=== PATIENT | male | born 1980 | race Caucasian/White ===

== ENCOUNTER 2019-07-31 00:55 | Day surgery (SDC) | payer OTHER, SELFPAY ==
[2019-07-26 14:40] VITALS: BMI 24.4
[2019-07-31 08:17] VITALS: BP 129/78; PULSE 108; RESP 16; TEMP 36.8; O2SAT 98; BMI 23.6
--- NOTE | 2019-07-31 08:19 | P.PNAN_ITS ---
Anes - Initial Pre Proc Eval Procedure: Operation Date: 07/31/19 09:30 Proposed Procedures p Colonoscopy - Barrera Otero MD Date/Time: 07/31/19 08:19 Surgeon: Barrera Otero MD Pre Op Diagnosis: Diarrhea Patient Data Age: 38 Gender: M Height: 5 ft 11 in Weight: 79.4 kg Allergies Allergy/AdvReac Type Severity Reaction Status Date / Time No Known Allergies Allergy Verified 07/26/19 14:37 Home Medications Medication Instructions Recorded Confirmed Type No Home Medications 07/31/19 07/31/19 History Patient hx anesthesia problems: none Family hx anesthesia problems: none [facility] Social History Social History Smoking status: Former smoker Smoking end date: 06/13/08 Alcohol intake: current Substance use: never Substance use type: does not use Gender identity (if verbalized by the patient): Male Anes - Eval Final PreProcedure Day of Procedure 07/31/19 08:19 Patient weight: normal Heart: regular rate and rhythm Lungs: clear to auscultation Airway: Mallampati scale class II Neurological: alert and oriented Last oral intake: >/= 8 hours ASA classification: II Emergent: no Anesthetic plan: proceed Anesthesia type and monitoring: general GIVS and standard monitoring Informed Consent: The patient's anesthetic plan and its attendant risks and benefits were discussed with the patient/family/POA. Questions were solicited and answers provided to the satisfaction of the patient/family/POA.
[2019-07-31] MEDS: LACTATED RINGERS 1,000 ML 150 ML IV CONT (08:29)
--- NOTE | 2019-07-31 08:55 | PM.HPGS ---
History of Present Illness History of Present Illness Consent: Risks, benefits, and alternatives have been discussed and questions answered. Patient agrees to proceed with procedure. Chief complaint: Diarrhea Narrative: Antony Brenner is a 38 year old male with lower abdominal discomfort for last few weeks, stool samples and blood work negative, never had a colonoscopy Review of Systems Constitutional: Constitutional: Denies headache(s) and Denies weakness Eyes: Eyes: Denies blurry vision ENT: Reports Normal hearing present, Denies headache(s) and Denies neck pain Cardiovascular: Cardiovascular: Denies chest pain and Denies dyspnea Respiratory: Respiratory: Denies dyspnea Gastrointestinal: Gastrointestinal: Reports no additional gastrointestinal complaints Genitourinary: Genitourinary: Denies dysuria Musculoskeletal: Musculoskeletal: Denies neck pain Integumentary/Breasts: Skin/Breast: Denies dry skin Neurologic: Reports Normal hearing present, Denies headache(s) and Denies weakness Psychiatric: Psychiatric: Denies anxiety Endocrine: Endocrine: Denies change in body appearance Hematologic/Lymphatic: Hematologic/Lymphatic: Denies easy bleeding Allergic/Immunologic: Allergic/Immunologic: Denies urticaria [facility] Social History Social History Smoking status: Former smoker Smoking end date: 06/13/08 Alcohol intake: current Substance use: never Substance use type: does not use Gender identity (if verbalized by the patient): Male Meds Home Medications and Allergies Home Medications Medication Instructions Recorded Confirmed Type No Home Medications 07/31/19 07/31/19 History Allergies Allergy/AdvReac Type Severity Reaction Status Date / Time No Known Allergies Allergy Verified 07/31/19 08:34 Vital Signs Vital Signs - 24 hr 07/31/19 08:17 Temperature 98.3 F Pulse Rate 108 H Respiratory Rate 16 Blood Pressure 129/78 Pulse Oximetry 98 Exam Const: General: comfortable and no acute distress HENMT: General nose exam: Normal nares present Eyes: General: appearance normal, both eyes and all related structures Neck: Neck: no JVD Resp: Auscultation: clear to auscultation bilaterally Cardio: Rate: regular rate Rhythm: regular rhythm GI: Inspection: non-distended GI Palp: Yes Soft to palpation Skin: General skin exam: normal color Neuro: General: gait normal Speech: normal speech Extrem: General: normal to inspection Psych: Mental Status: mental status grossly normal Assessment and Plan Assessment and plan (1) Diarrhea: Qualifiers: Diarrhea type: unspecified type Qualified Code(s): R19.7 - Diarrhea, unspecified Code(s): R19.7 - Diarrhea, unspecified Status: Acute Assessment and Plan: now more constipation, treated with abx but still symptomatic. Will do a colonoscopy, consider random bx (2) Lower abdominal pain: Code(s): R10.30 - Lower abdominal pain, unspecified Status: Acute (3) Migraine: Qualifiers: Migraine type: unspecified Status migrainosus presence: without status migrainosus Intractability: not intractable Qualified Code(s): G43.909 - Migraine, unspecified, not intractable, without status migrainosus Code(s): G43.909 - Migraine, unspecified, not intractable, without status migrainosus Status: Acute
[2019-07-31 09:16] VITALS: BP 93/66; PULSE 85; RESP 16; O2SAT 97
[2019-07-31 09:26] VITALS: BP 95/68; PULSE 85; RESP 16; O2SAT 98
[2019-07-31 09:36] VITALS: BP 105/70; PULSE 80; RESP 16; O2SAT 99
== END 2019-07-31 09:49 | disposition home or self-care (01) ==
PROVIDERS: PCP Family Medicine; Visit Provider Internal Medicine Gastroenterology
PROC: 0DJD8ZZ Inspection of Lower Intestinal Tract, Via Natural or Artificial Opening Endoscopic (ICD-10-PCS; CPT 45378; principal; 2019-07-31 09:30)
DX: K51.90 Ulcerative colitis, unspecified, without complications (principal); Z87.891 Personal history of nicotine dependence
CPT/HCPCS: 45380; 88305; J2704; J7120

== ENCOUNTER 2019-08-09 08:39 | Emergency (ER) | payer OTHER, SELFPAY ==
--- NOTE | 2019-08-09 08:54 | ED.HA ---
HPI - Headache General Chief Complaint: Headache Stated Complaint: headache x 3days Time Seen by Provider: 08/09/19 08:54 Source: patient Mode of arrival: ambulatory Limitations: no limitations History of Present Illness HPI Narrative: A 38 y/o male presents to the ED with c/o headache. He reports that the headache started 2 days ago and has been constant since. The headache is usually relieved by Excedrine migraine, but it did not help the last 2 days. He rates the headache a 7/10 in severity. Pt states that he has a PMHx of migraines, but states that they have been more frequent for the past 3 weeks. He notes that he saw his PCP on 08/06/19 and she prescribed him Rizatriptan for the frequent migrqaines. Pt took the Rizatriptan yesterday, but adds that it made his face red and painful, so he is not going to take it again. At his PCP appointment, he reports that his enzyme count was high and his PCP recommended an ultrasound of his liver. Pt reports fever, but denies N/V/D. He notes that he had a colonoscopy on 07/31/19 and was diagnosed with colitis. MD elicited complaint: headache Pertinent past history: migraines Onset (ago): day(s) (2) Pain scale (0-10): 7 Quality & Timing: constant Relieving factors: nothing Associated symptoms: fever Treatments prior to arrival: migraine medication (Rizatriptan, Excedrine) Related Data Allergies Allergy/AdvReac Type Severity Reaction Status Date / Time No Known Allergies Allergy Verified 07/31/19 08:34 Review of Systems Review of Systems: All systems reviewed & are unremarkable except as noted in HPI and below Constitutional: Constitutional: Reports fever(s) Gastrointestinal: Gastrointestinal: Denies diarrhea, Denies nausea and Denies vomiting Neurologic: Reports headache(s) [facility] Past Medical History Medical History (Updated 08/09/19 @ 11:25 by Jamie Cantu MD) Colitis Diarrhea Lower abdominal pain Migraine Surgical History Surgical History (Updated 08/09/19 @ 09:03 by Gabbi De La Rosa) History of colonoscopy Social History Social History Smoking status: Former smoker Smoking end date: 06/13/08 Alcohol intake: current Substance use: never Substance use type: does not use Gender identity (if verbalized by the patient): Male Exam Const: General: healthy appearing and no acute distress Nutritional Appearance: well nourished HENMT: Mouth: Yes lip normal and Yes moist mucous membranes Eyes: Conjunctivae: conjunctivae normal Pupils: Equal, round and reactive pupils present Resp: Effort & Inspection: normal respiratory effort Auscultation: clear to auscultation bilaterally Cardio: Rate: regular rate Rhythm: regular rhythm Heart sounds: no murmurs GI: GI Palp: Yes Soft to palpation and No Tenderness to palpation present (GI) Auscultation: normal bowel sounds Back/Spine/Pelvis: Back: other (Full ROM) Skin: General skin exam: normal color, dry skin and other (Warm) Neuro: General: patient oriented x3 (Alert) Speech: normal speech Extrem: General: full ROM Psych: Mental Status: mental status grossly normal Affect: normal affect Course Vital Signs Vital signs: Vital Signs Temperature 36.4 C L 08/09/19 08:56 Pulse Rate 108 H 08/09/19 08:56 Respiratory Rate 12 08/09/19 08:56 Blood Pressure 145/83 H 08/09/19 08:56 Pulse Oximetry 99 08/09/19 08:56 Temperature 36.4 C L 08/09/19 08:56 Pulse Rate 108 H 08/09/19 08:56 Respiratory Rate 12 08/09/19 08:56 Blood Pressure 145/83 H 08/09/19 08:56 Pulse Oximetry 99 08/09/19 08:56 MDM - Headache MDM Narrative Medical decision making narrative: Pain down to 1/10 after treatment. consistent with previous migraines. No indication for imaging at this time. Differential Diagnosis Differential diagnosis: Likely migraine Medical Records Attestation: I reviewed the patient's medical records. Discharge Plan Discharge Cli
[2019-08-09 08:56] VITALS: BP 145/83; PULSE 108; RESP 12; TEMP 36.4; O2SAT 99
[2019-08-09] MEDS: METOCLOPRAMIDE HCL INJ 10 MG/2 ML VIAL IV PUSH (09:16)
[2019-08-09] MEDS: SODIUM CHLORIDE 0.9% IV 1,000 ML 999 ML IV CONT (09:16)
[2019-08-09] MEDS: KETOROLAC 30 MG/ML VIAL (*BKC) IV PUSH (09:59)
--- NOTE | 2019-08-14 07:52 | PC.NURSE ---
LATE ENTRY This note is being entered to document information to the patient's record. The following information was omitted on [08/09/2019], by [DONNIE Montalvo infused at [phone].].
== END 2019-08-09 11:41 | disposition home or self-care (01) ==
PROVIDERS: Emergency Provider Emergency Medicine; PCP Family Medicine
DX: G43.909 Migraine, unspecified, not intractable, without status migrainosus (principal); Z87.891 Personal history of nicotine dependence
CPT/HCPCS: 96361; 96374; 96375; 99284; J0131; J1100; J1200; J1885; J2765; J7030

== ENCOUNTER 2020-01-17 08:41 | Outpatient (CLI) | payer OTHER, SELFPAY ==
--- NOTE | ~2020-01-17 | MR_ITS ---
EXAMINATION: MR MRCP wo/w con/w 3D wo ind DATE: 01/17/2020 10:15 INDICATION: Lower abdominal pain, TECHNIQUE: Magnetic resonance imaging (MRI) of the abdomen was performed without and with intravenous contrast. Sequences included coronal T2-weighted SS-FSE ARC, coronal T2-weighted FS SS-FSE, coronal T2-weighted 2D FS FIESTA, Water:Coronal LAVA-Flex, sagittal T2-weighted SS-FSE ARC, axial SSFSE ARC, axial 3D DualEcho, axial DWI B=600, axial T1-weighted LAVA, FAT:Coronal LAVA-Flex, and coronal in and opposed phase LAVA-Flex. Thick-slab T2-weighted FRFSE-XL images were obtained for magnetic resonance cholangiopancreatography (MRCP). Maximum intensity projection 3-D reconstructions of the volumetric data were created by the technologist. Postcontrast sequences included a time course of axial T1-weig hted LAVA, FAT:Coronal LAVA-Flex, coronal in and opposed phase LAVA-Flex, and Water:Coronal LAVA-Flex . COMPARISON: None. CONTRAST: Multihance, 15 cc FINDINGS: ABDOMEN MRI: The visualized lung bases are clear. The heart size is normal. The liver, spleen, pancre as, gallbladder, and adrenal glands are normal. Cysts of the kidneys measure up to 6 mm on the right. There are no pathologically enlarged abdominal lymph nodes. No dilated loops of bowel are seen. Ther e is a moderate volume of colonic stool. ABDOMEN MRCP: There is no intrahepatic or extrahepatic biliary dilatation. No stone or stricture of t he common bile duct is identified. The pancreatic duct is normal in course and caliber. IMPRESSION: 1. No MRI correlate for the patient's symptoms. Reviewed, dictated and finalized at location A.
[2020-01-17 09:29] LABS: Estimated Glomerular Filt Rate > 60
== END 2020-01-17 08:42 | disposition home or self-care (01) ==
LOC: ANHIMG 08:43
PROVIDERS: PCP Family Medicine; Visit Provider Internal Medicine Gastroenterology
DX: R10.30 Lower abdominal pain, unspecified (principal); R74.8 Abnormal levels of other serum enzymes
CPT/HCPCS: 36415; 74183; 76376; A9577

== ENCOUNTER → 2020-10-18 01:08 | Outpatient (CLI) | payer OTHER, SELFPAY ==
[2020-10-19 14:53] LABS: SARS-CoV-2 RNA PCR Negative
== END ==
PROVIDERS: PCP Family Medicine; Visit Provider Internal Medicine Gastroenterology
DX: Z01.812 Encounter for preprocedural laboratory examination (principal); Z20.822 Contact with and (suspected) exposure to COVID-19
CPT/HCPCS: C9803; U0003; U0005

== ENCOUNTER 2020-10-21 02:18 | Day surgery (SDC) | payer OTHER, SELFPAY ==
[2020-10-10 13:59] VITALS: BMI 24.4
[2020-10-21 09:31] VITALS: BMI 23.1
[2020-10-21 09:32] VITALS: BP 116/80; PULSE 77; RESP 14; TEMP 36.3; O2SAT 100; BMI 23.1
[2020-10-21] MEDS: LACTATED RINGERS 1,000 ML 150 ML IV CONT (09:38)
--- NOTE | 2020-10-21 09:38 | WPDANESEPPF ---
Anes - Initial Pre Proc Eval Procedure: Operation Date: 10/21/20 10:45 Proposed Procedures p Colonoscopy - Barrera Otero MD Date/Time: 10/21/20 09:38 Surgeon: Barrera Otero MD Pre Op Diagnosis: ulcerative proctitis Patient Data Age: 39 Gender: M Height: 1.8 m Weight: 75 kg Last Vital Signs Temp 36.3 C L 10/21/20 09:32 Pulse 77 10/21/20 09:32 Resp 14 10/21/20 09:32 BP 116/80 10/21/20 09:32 Pulse Ox 100 10/21/20 09:32 Allergies Allergy/AdvReac Type Severity Reaction Status Date / Time No Known Allergies Allergy Verified 10/21/20 09:30 Home Medications Medication Instructions Recorded Confirmed Type mesalamine 1.2 gram tablet,delayed See Rx Instructions .ROUTE 10/15/20 10/21/20 Rx release .COMPLEX #90 tablet Patient hx anesthesia problems: none Family hx anesthesia problems: none PMFSH Past Medical History Medical History (Updated 11/01/19 @ 11:12 by Barrera Otero MD) Colitis Diarrhea Elevated liver enzymes Lower abdominal pain Migraine Ulcerative (chronic) proctitis Surgical History Surgical History (Updated 08/09/19 @ 09:03 by Gabbi De La Rosa) History of colonoscopy Social History Social History Smoking status: Former smoker Tobacco type: cigarettes Smoking end date: 06/13/08 Alcohol intake: current Drinks per week: 3 Substance use: never Substance use type: does not use Living arrangements: with family Gender identity (if verbalized by the patient): Male Sexual Orientation (if Verbalized by the Patient): Straight or Heterosexual Spiritual care concerns: No Anes - Eval Final PreProcedure Day of Procedure 10/21/20 09:38 Patient weight: normal Heart: regular rate and rhythm Lungs: clear to auscultation and normal air movement Airway: Mallampati scale class II Neurological: alert and oriented Last oral intake: >/= 8 hours ASA classification: III Emergent: no Anesthetic plan: proceed Anesthesia type and monitoring: general GIVS and standard monitoring Informed Consent: The patient's anesthetic plan and its attendant risks and benefits were discussed with the patient/family/POA. Questions were solicited and answers provided to the satisfaction of the patient/family/POA.
--- NOTE | 2020-10-21 09:55 | PM.HPGS ---
History of Present Illness History of Present Illness Consent: Risks, benefits, and alternatives have been discussed and questions answered. Patient agrees to proceed with procedure. Chief complaint: ulcerative proctitis Narrative: Antony Brenner is a 39 year old male with ulcerative proctitis on oral mesalamine doing quite well. Review of Systems Constitutional: Constitutional: Denies headache(s) and Denies weakness Eyes: Eyes: Denies blurry vision ENT: Reports Normal hearing present, Denies headache(s) and Denies neck pain Cardiovascular: Cardiovascular: Denies chest pain and Denies dyspnea Respiratory: Respiratory: Denies dyspnea Gastrointestinal: Gastrointestinal: Reports no additional gastrointestinal complaints Genitourinary: Genitourinary: Denies dysuria Musculoskeletal: Musculoskeletal: Denies neck pain Integumentary/Breasts: Skin/Breast: Denies dry skin Neurologic: Reports Normal hearing present, Denies headache(s) and Denies weakness Psychiatric: Psychiatric: Denies anxiety Endocrine: Endocrine: Denies change in body appearance Hematologic/Lymphatic: Hematologic/Lymphatic: Denies easy bleeding Allergic/Immunologic: Allergic/Immunologic: Denies urticaria PMFSH Past Medical History Medical History (Updated 11/01/19 @ 11:12 by Barrera Otero MD) Colitis Diarrhea Elevated liver enzymes Lower abdominal pain Migraine Ulcerative (chronic) proctitis Surgical History Surgical History (Updated 08/09/19 @ 09:03 by Gabbi De La Rosa) History of colonoscopy Social History Social History Smoking status: Former smoker Tobacco type: cigarettes Smoking end date: 06/13/08 Alcohol intake: current Drinks per week: 3 Substance use: never Substance use type: does not use Living arrangements: with family Gender identity (if verbalized by the patient): Male Sexual Orientation (if Verbalized by the Patient): Straight or Heterosexual Spiritual care concerns: No Meds Home Medications and Allergies Home Medications Medication Instructions Recorded Confirmed Type mesalamine 1.2 gram tablet,delayed See Rx Instructions .ROUTE 10/15/20 10/21/20 Rx release .COMPLEX #90 tablet Allergies Allergy/AdvReac Type Severity Reaction Status Date / Time No Known Allergies Allergy Verified 10/21/20 09:30 Vital Signs Vital Signs - 24 hr 10/21/20 09:32 Temperature 97.4 F L Pulse Rate 77 Respiratory Rate 14 Blood Pressure 116/80 Pulse Oximetry 100 Exam Const: General: comfortable and no acute distress HENMT: General nose exam: Normal nares present Eyes: General: appearance normal, both eyes and all related structures Neck: Neck: no JVD Resp: Auscultation: clear to auscultation bilaterally Cardio: Rate: regular rate Rhythm: regular rhythm GI: Inspection: non-distended GI Palp: Yes Soft to palpation Skin: General skin exam: normal color Neuro: General: gait normal Speech: normal speech Extrem: General: normal to inspection Psych: Mental Status: mental status grossly normal Assessment and Plan Assessment and plan (1) Ulcerative (chronic) proctitis: Code(s): K51.20 - Ulcerative (chronic) proctitis without complications Status: Acute Assessment and Plan: colonoscopy to assess for healing
[2020-10-21 10:13] VITALS: BP 107/71; PULSE 72; RESP 12; O2SAT 98
[2020-10-21 10:23] VITALS: BP 105/75; PULSE 65; RESP 11; O2SAT 100
[2020-10-21 10:33] VITALS: BP 113/82; PULSE 65; RESP 13; O2SAT 100
== END 2020-10-21 10:44 | disposition home or self-care (01) ==
PROVIDERS: PCP Family Medicine; Visit Provider Internal Medicine Gastroenterology
PROC: 0DJD8ZZ Inspection of Lower Intestinal Tract, Via Natural or Artificial Opening Endoscopic (ICD-10-PCS; CPT 45378; principal; 2020-10-21 10:45)
DX: K51.20 Ulcerative (chronic) proctitis without complications (principal); K52.9 Noninfective gastroenteritis and colitis, unspecified; R10.30 Lower abdominal pain, unspecified; Z87.891 Personal history of nicotine dependence
CPT/HCPCS: 45380; 88305; C9803; J7120; U0003; U0005

== ENCOUNTER 2021-04-23 13:46 | Outpatient (CLI) | payer OTHER, SELFPAY ==
[2021-04-23 14:36] LABS: Hematocrit 44.8 % (42.0-52.0); Mean Corpuscular HGB Conc 33.5 g/dl (32-36); Mean Corpuscular Hemoglobin 28.2 pg (26-34); Mean Corpuscular Volume 84.4 fl (80-100); Mean Platelet Volume 11.3 fl (7.4-10.4); Platelet Count Result 229 k/mm3 (150-375); Red Blood Count 5.31 M/mm3 (4.6-6.20); Red Cell Distribution Width 12.2 % (11.5-14.5); White Blood Count 7.1 K/mm3 (4.5-10.0)
[2021-04-23 14:47] LABS: Erythrocyte Sedimentation Rate 18 mm/hr (0-20)
[2021-04-23 14:48] LABS: Alanine Aminotransferase 30 U/L (4-50); Alkaline Phosphatase 67 U/L (38-126); Anion Gap 7 mmol/L (8-16); Aspartate Amino Transferase 31 U/L (17-59); Bilirubin,Total 0.4 mg/dL (0.2-1.3); Blood Urea Nitrogen 18 mg/dL (9-20); CRP < 0.5 mg/dL (<1.0); Calcium 9.9 mg/dL (8.4-10.2); Carbon Dioxide 31 mmol/L (22-30); Chloride 100 mmol/L (98-107); Estimated Glomerular Filt Rate > 60; Glucose 92 mg/dL (65-110); Potassium 4.7 mmol/L (3.4-5.0); Sodium 138 mmol/L (137-145)
== END 2021-04-23 13:47 | disposition home or self-care (01) ==
LOC: ANHLAB 13:48
PROVIDERS: PCP Family Medicine; Visit Provider Internal Medicine Gastroenterology
DX: K51.20 Ulcerative (chronic) proctitis without complications (principal)
CPT/HCPCS: 36415; 80053; 85027; 85652; 86140

== ENCOUNTER 2022-08-26 14:47 | Outpatient (CLI) | payer OTHER, SELFPAY ==
[2022-08-26 15:08] LABS: Hematocrit 44.7 % (42.0-52.0); Mean Corpuscular HGB Conc 33.6 g/dl (32-36); Mean Corpuscular Hemoglobin 27.7 pg (26-34); Mean Corpuscular Volume 82.6 fl (80-100); Mean Platelet Volume 10.4 fl (7.4-10.4); Platelet Count Result 210 k/mm3 (150-375); Red Blood Count 5.41 M/mm3 (4.6-6.20); Red Cell Distribution Width 12.5 % (11.5-14.5); White Blood Count 5.8 K/mm3 (4.5-10.0)
[2022-08-26 16:17] LABS: Erythrocyte Sedimentation Rate 1 mm/hr (0-20)
[2022-08-26 17:29] LABS: Alanine Aminotransferase 35 U/L (6-50); Albumin Level 4.7 g/dL (3.5-5.1); Alkaline Phosphatase 76 U/L (38-126); Anion Gap 7 mmol/L (8-16); Aspartate Amino Transferase 29 U/L (17-59); Bilirubin,Total 0.6 mg/dL (0.2-1.3); Blood Urea Nitrogen 19 mg/dL (9-20); CRP < 0.5 mg/dL (<1.0); Calcium 9.3 mg/dL (8.4-10.2); Carbon Dioxide 30 mmol/L (22-30); Chloride 103 mmol/L (98-107); Estimated Glomerular Filt Rate > 60; Glucose 104 mg/dL (65-110); Potassium 4.2 mmol/L (3.4-5.0); Sodium 140 mmol/L (137-145)
== END 2022-08-26 14:48 | disposition home or self-care (01) ==
LOC: ANHLAB 14:48
PROVIDERS: PCP Family Medicine; Visit Provider Internal Medicine Gastroenterology
DX: K51.20 Ulcerative (chronic) proctitis without complications (principal)
CPT/HCPCS: 36415; 80053; 85027; 85652; 86140

== ENCOUNTER 2023-07-12 09:56 | Outpatient (CLI) | payer OTHER, SELFPAY ==
[2023-07-12 10:09] LABS: Hematocrit 47.7 % (42.0-52.0); Hemoglobin 15.2 g/dL (14.0-18.0); Mean Corpuscular HGB Conc 31.9 g/dl (32-36); Mean Corpuscular Hemoglobin 26.6 pg (26-34); Mean Corpuscular Volume 83.5 fl (80-100); Mean Platelet Volume 10.4 fl (7.4-10.4); Platelet Count Result 216 k/mm3 (150-375); Red Blood Count 5.71 M/mm3 (4.6-6.20); Red Cell Distribution Width 12.4 % (11.5-14.5); White Blood Count 5.1 K/mm3 (4.5-10.0)
[2023-07-12 10:24] LABS: Alanine Aminotransferase 39 U/L (6-50); Albumin Level 4.8 g/dL (3.5-5.1); Alkaline Phosphatase 72 U/L (38-126); Anion Gap 9 mmol/L (8-16); Aspartate Amino Transferase 33 U/L (17-59); Bilirubin,Total 0.6 mg/dL (0.2-1.3); Blood Urea Nitrogen 16 mg/dL (9-20); CRP < 0.5 mg/dL (<1.0); Calcium 9.9 mg/dL (8.4-10.2); Carbon Dioxide 29 mmol/L (22-30); Chloride 102 mmol/L (98-107); Estimated Glomerular Filt Rate > 60; Glucose 100 mg/dL (65-110); Potassium 4.4 mmol/L (3.4-5.0); Sodium 140 mmol/L (137-145)
[2023-07-12 11:24] LABS: Erythrocyte Sedimentation Rate 1 mm/hr (0-20)
== END 2023-07-12 09:57 | disposition home or self-care (01) ==
LOC: ANHLAB 09:58
PROVIDERS: Visit Provider Nurse Practitioner
DX: K51.20 Ulcerative (chronic) proctitis without complications (principal); R15.9 Full incontinence of feces; R19.8 Other specified symptoms and signs involving the digestive system and abdomen
CPT/HCPCS: 36415; 80053; 85027; 85652; 86140

== ENCOUNTER 2023-09-06 01:00 | Day surgery (SDC) | payer OTHER, SELFPAY ==
[2023-08-26 10:10] VITALS: BMI 25.4
--- NOTE | 2023-09-02 09:04 | SUR.PREOP ---
Patient called regarding upcoming procedure. Reviewed preop instructions, appointment times, and procedure prep.
[2023-09-06 06:49] VITALS: BP 128/75; PULSE 89; RESP 16; TEMP 36.2; O2SAT 100
[2023-09-06] MEDS: LACTATED RINGERS 1,000 ML 150 ML IV CONT (06:57)
--- NOTE | 2023-09-06 07:42 | P.PNAN_ITS ---
Anes - Initial Pre Proc Eval Procedure: Operation Date: 09/06/23 08:00 Proposed Procedures p Flexible Sigmoidoscopy - Barrera Otero MD Date/Time: 09/06/23 07:42 Surgeon: Barrera Otero MD Pre Op Diagnosis: Ulcerative (chronic) proctitis without complicati Patient Data Age: 42 Gender: M Height: 1.8 m Weight: 76.4 kg Last Vital Signs Temp 97.2 F L 09/06/23 06:49 Pulse 89 09/06/23 06:49 Resp 16 09/06/23 06:49 BP 128/75 09/06/23 06:49 Pulse Ox 100 09/06/23 06:49 O2 Del Method Room Air 09/06/23 06:49 Allergies Allergy/AdvReac Type Severity Reaction Status Date / Time No Known Allergies Allergy Verified 09/06/23 06:47 Home Medications Medication Instructions Recorded Confirmed Type mesalamine 1.2 gram tablet,delayed See Rx Instructions .Route 11/05/22 09/06/23 Rx release .COMPLEX #270 tabs mesalamine 1,000 mg rectal 1 g RECTAL QHS #30 ea 07/12/23 09/06/23 Rx suppository (Canasa) Patient hx anesthesia problems: none Family hx anesthesia problems: none Results Review: All pre-operative results and documents have been reviewed as part of the pre- operative evaluation. [facility] Past Medical History Medical History (Updated 07/12/23 @ 09:38 by Julia Cuevas APRN) Colitis Diarrhea Elevated liver enzymes Lower abdominal pain Migraine Rectal leakage Tenesmus (rectal) Ulcerative (chronic) proctitis Surgical History Surgical History History of colonoscopy Social History Social History Smoking status: Former smoker Tobacco type: cigarettes Smoking end date: 06/13/08 Alcohol intake: current Drinks per week: 3 Substance use: never Substance use type: does not use Living arrangements: alone Gender identity (if verbalized by the patient): Male Sexual Orientation (if Verbalized by the Patient): Straight or Heterosexual Spiritual care concerns: No Anes - Eval Final PreProcedure Day of Procedure 09/06/23 07:42 Patient weight: normal Heart: regular rate and rhythm Lungs: clear to auscultation Airway: Mallampati scale class II Neurological: alert and oriented Last oral intake: >/= 8 hours ASA classification: III Emergent: no Anesthetic plan: proceed Anesthesia type and monitoring: general GIVS and standard monitoring Results Review: All pre-operative results and documents have been reviewed as part of the pre- operative evaluation. Informed Consent: The patient's anesthetic plan and its attendant risks and benefits were discussed with the patient/family/POA. Questions were solicited and answers provided to the satisfaction of the patient/family/POA.
--- NOTE | 2023-09-06 08:04 | PM.HPGS ---
History of Present Illness History of Present Illness Consent: Risks, benefits, and alternatives have been discussed and questions answered. Patient agrees to proceed with procedure. 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 He was previously on suppositories but then placed on oral mesalamine 3 tabs daily and was doing well.?Last colonoscopy 2020 showed only mild proctitis, recently had flare up and started using again suppository and symptom resolved. Review of Systems Review of Systems: All systems reviewed & are unremarkable except as noted in HPI and below PMFSH Past Medical History Medical History (Updated 07/12/23 @ 09:38 by Julia Cuevas APRN) Colitis Diarrhea Elevated liver enzymes Lower abdominal pain Migraine Rectal leakage Tenesmus (rectal) Ulcerative (chronic) proctitis Surgical History Surgical History History of colonoscopy Social History Social History Smoking status: Former smoker Tobacco type: cigarettes Smoking end date: 06/13/08 Alcohol intake: current Drinks per week: 3 Substance use: never Substance use type: does not use Living arrangements: alone Gender identity (if verbalized by the patient): Male Sexual Orientation (if Verbalized by the Patient): Straight or Heterosexual Spiritual care concerns: No Meds Home Medications and Allergies Home Medications Medication Instructions Recorded Confirmed Type mesalamine 1.2 gram tablet,delayed See Rx Instructions .Route 11/05/22 09/06/23 Rx release .COMPLEX #270 tabs mesalamine 1,000 mg rectal 1 g RECTAL QHS #30 ea 07/12/23 09/06/23 Rx suppository (Canasa) Allergies Allergy/AdvReac Type Severity Reaction Status Date / Time No Known Allergies Allergy Verified 09/06/23 06:47 Vital Signs Vital Signs - 24 hr 09/06/23 06:49 Temperature 97.2 F L Pulse Rate 89 Respiratory Rate 16 Blood Pressure 128/75 Pulse Oximetry 100 Oxygen Delivery Room Air Exam Const: General: comfortable and no acute distress HENMT: Face/Nose/Sinus: Normal nares present Eyes: General: appearance normal, both eyes and all related structures Neck: Neck: no JVD Resp: Auscultation: clear to auscultation bilaterally Cardio: Rate: regular rate Rhythm: regular rhythm GI: Inspection: non-distended GI Palp: Yes Soft to palpation Skin: General skin exam: normal color Neuro: General: gait normal Speech: normal speech Extrem: General: normal to inspection Psych: Mental Status: mental status grossly normal Assessment and Plan Assessment and plan (1) Ulcerative (chronic) proctitis: Code(s): K51.20 - Ulcerative (chronic) proctitis without complications Status: Acute Assessment and Plan: sigmoidoscopy to assess doing well on mesalamine
[2023-09-06 08:12] VITALS: BP 101/68; PULSE 72; RESP 18; O2SAT 97
[2023-09-06 08:22] VITALS: BP 101/69; PULSE 69; RESP 21; O2SAT 98
[2023-09-06 08:32] VITALS: BP 120/82; PULSE 63; RESP 12; O2SAT 99
== END 2023-09-06 08:49 | disposition home or self-care (01) ==
PROVIDERS: Visit Provider Internal Medicine Gastroenterology
PROC: 0DJD8ZZ Inspection of Lower Intestinal Tract, Via Natural or Artificial Opening Endoscopic (ICD-10-PCS; CPT 45330; principal; 2023-09-06 08:00)
DX: K51.20 Ulcerative (chronic) proctitis without complications (principal); Z87.891 Personal history of nicotine dependence; K64.8 Other hemorrhoids
CPT/HCPCS: 45330; J2704; J7120

== ENCOUNTER 2024-02-08 14:37 | Outpatient (CLI) | payer OTHER, SELFPAY ==
[2024-02-08 14:54] LABS: Hematocrit 43.5 % (42.0-52.0); Hemoglobin 14.8 g/dL (14.0-18.0); Mean Corpuscular Hemoglobin 28.1 pg (26-34); Mean Corpuscular Volume 82.7 fl (80-100); Mean Platelet Volume 10.9 fl (7.4-10.4); Platelet Count Result 199 k/mm3 (150-375); Red Blood Count 5.26 M/mm3 (4.6-6.20); Red Cell Distribution Width 12.5 % (11.5-14.5); White Blood Count 6.1 K/mm3 (4.5-10.0)
[2024-02-08 15:17] LABS: Erythrocyte Sedimentation Rate 3 mm/hr (0-20)
[2024-02-08 17:01] LABS: Alanine Aminotransferase 38 U/L (6-50); Albumin Level 4.6 g/dL (3.5-5.1); Alkaline Phosphatase 76 U/L (38-126); Anion Gap 7 mmol/L (4-12); Aspartate Amino Transferase 34 U/L (17-59); Bilirubin,Total 0.5 mg/dL (0.2-1.3); Blood Urea Nitrogen 16 mg/dL (9-20); CRP < 0.5 mg/dL (<1.0); Calcium 9.6 mg/dL (8.4-10.2); Carbon Dioxide 32 mmol/L (22-30); Chloride 98 mmol/L (98-107); Estimated Glomerular Filt Rate > 60; Glucose 120 mg/dL (65-110); Potassium 4.1 mmol/L (3.4-5.0); Sodium 137 mmol/L (137-145)
[2024-02-08 17:05] LABS: Iron 82 ug/dL (49-181)
[2024-02-08 17:14] LABS: Percent Iron Saturation 25 % (20-50)
[2024-02-08 18:01] LABS: Folic Acid 13.8 ng/mL (2.76->20)
[2024-02-11 14:34] LABS: Vitamin D 1,25 (OH)2 Total 41 pg/mL (18-72); Vitamin D2 1,25 (OH)2 <8 pg/mL; Vitamin D3 1,25 (OH)2 41 pg/mL
== END 2024-02-08 14:38 | disposition home or self-care (01) ==
LOC: ANHLAB 14:39
PROVIDERS: PCP Nurse Practitioner; Visit Provider Nurse Practitioner
DX: K51.20 Ulcerative (chronic) proctitis without complications (principal)
CPT/HCPCS: 36415; 80053; 82607; 82652; 82728; 82746; 83540; 83550; 85027; 85652; 86140

== ENCOUNTER 2024-09-20 11:33 | Outpatient (CLI) | payer OTHER, SELFPAY ==
[2024-09-20 11:51] LABS: Hematocrit 46.8 % (42.0-52.0); Hemoglobin 15.3 g/dL (14.0-18.0); Mean Corpuscular HGB Conc 32.7 g/dl (32-36); Mean Corpuscular Hemoglobin 26.7 pg (26-34); Mean Corpuscular Volume 81.8 fl (80-100); Mean Platelet Volume 10.4 fl (7.4-10.4); Platelet Count Result 207 k/mm3 (150-375); Red Blood Count 5.72 M/mm3 (4.6-6.20); Red Cell Distribution Width 12.6 % (11.5-14.5); White Blood Count 6.1 K/mm3 (4.5-10.0)
--- OUTSIDE RECORDS SUMMARY | 2024-09-20 12:21 | XMS_ITS | Clinical Summary ---
Author Organization [facility] Address [facility] [place] [address] Care Team Providers Care Health Inspector Name Role Phone None, Provider MD Primary Care Provider Unavaila ble Allergies No known active allergies Medications mesalamine EC (LIALDA) 1.2 g Tab EC tablet 05/09/2022 Activ e predniSONE (DELTASONE) 20 MG tabletIndicatio ns:Poison aron dermatitis Take 3 tablets for 3 days, then 2 tabs for 3 days, then 1 tab for 3 days, then 1/2 tab for 4 days. 20 tablet 05/07/2024 Active Active Problems No known active problems Immunizations Name Administration Dates Next Due Influenza Adult (Generic) 03/17/2019,04/08/2016 Tdap (Generic) 01/08/2016 Family History Medical History Relation Comments Cancer Mother Relation Status Comments Father Alive Mother Alive Social History Tobacco Use Types Packs/Day Years Used Date Smoking Tobacco: Never Smokeless Tobacco: Never Tobacco Cessation:Counseling Given: No Alcohol Use Standard Drinks/Week Comments Yes 0 (1 standard drink = 0.6 oz pur e alcohol) occ PHQ-2 Answer Date Recorded Patient Health Questionnaire-2 Score 0 05/07/2024 Sex and Gender Information Value Date Recorded Sex Assigned at Not on file Legal Sex Male 8:37 PM CDT Gender Identity Not on file Sexual Orientation Not on file Last Filed Vital Signs Vital Sign Reading Time Taken Comments Blood Pressure 133/88 05/07/2024 4:19 PM STRUCTURAL DESIGNER Pulse 75 05/07/2024 4:19 PM STRUCTURAL DESIGNER Temperature 36.8 C (98.3 F) 05/07/2024 4:19 PM STRUCTURAL DESIGNER Respiratory Rate 16 05/07/2024 4:19 PM STRUCTURAL DESIGNER Oxygen Saturation 99% 05/07/2024 4:19 PM STRUCTURAL DESIGNER Inhaled Oxygen Concentration - - Weight 84.8 kg (187 lb) 05/07/2024 4:19 PM STRUCTURAL DESIGNER Height 180.3 cm (5' 11 ) 05/07/2024 4:19 PM STRUCTURAL DESIGNER Body Mass Index 26.08 05/07/2024 4:19 PM STRUCTURAL DESIGNER Plan of Treatment Health Maintenance Due Date Last Done Comments Annual Physical 1983 Hepatitis B Vaccines (1 of 3 - 19+ 3-dose series) 2001 COVID-19 Vaccine (1 - 2023-2 5 season) 2024 PHQ-2 (Physician [place]) 06/13/2024 05/07/2024 DTaP, Tdap and Td Vaccines ( 2 - Td or Tdap) 01/07/2026 01/08/2016 Hepatitis C Completed 09/03/2019 HPV Vaccines Aged Out No longer eligi ble based on patient's age to complete this topic Meningococcal B Vaccine Aged Out No l onger eligible based on patient's age to complete this topic Meningococcal Vaccine Aged Out No mitchell jesica eligible based on patient's age to complete this topic Pneumococcal Vaccine: Pediat rics (0 to 5 Years) and At-Risk Patients (6 to 64 Years) Aged Out No longer eligi ble based on patient's age to complete this topic RSV Immunizations Under 20 Months Aged Out No longer eligible based on patient's age to complete this topic Procedures Procedure Name Priority Date/Time Associated Diagnosis Comments HC HEPATITIS PANEL ACUTE Routine 09/03/2019 7:57 AM CDT Acid phosphatase elevated from Last 3 Months or Most Recently Relevant to Health Maintenance Results * HEPATITIS A,B,& C (09/03/2019 7:57 AM CDT) HEPATITIS B SURFACE AG NON-REACTI VE NON-REACTI VE 09/03/2019 2:17 PM CDT [facility] HEP B CORE TOTAL AB NON-REACTI VE NON-REACTI VE 09/03/2019 2:41 PM CDT [facility] HEP B SURFACE AB NON-REACTI VE 09/03/2019 2:15 PM CDT [facility] HAV IGM NON-REACTI VE NON-REACTI VE 09/03/2019 3:07 PM CDT [facility] HEPATITIS C AB NON-REACTI VE NON-REACTI VE 09/03/2019 2:40 PM CDT [facility] 09/03/2019 7:57 AM CDT us Yudelka Gaston DO LABORATORY Final Resul t [facility] [address] [place] [address], from Last 3 Months or Most Recently Relevant to Health Maintenance Insurance [employer] Care Teams Health Inspector Relationship Specialty Start Date End Date None, Provider, MD PCP - General UNKNOWN PHYSICIAN SPECIALTY 06/29/22
[2024-09-20 13:42] LABS: Erythrocyte Sedimentation Rate 1 mm/hr (0-20)
[2024-09-20 15:16] LABS: Alanine Aminotransferase 34 U/L (6-50); Albumin Level 4.6 g/dL (3.5-5.1); Alkaline Phosphatase 80 U/L (38-126); Anion Gap 9 mmol/L (4-12); Aspartate Amino Transferase 28 U/L (17-59); Bilirubin,Total 0.5 mg/dL (0.2-1.3); Blood Urea Nitrogen 18 mg/dL (9-20); CRP < 0.5 mg/dL (<1.0); Calcium 9.4 mg/dL (8.4-10.2); Carbon Dioxide 27 mmol/L (22-30); Chloride 101 mmol/L (98-107); Estimated Glomerular Filt Rate > 60; Glucose 157 mg/dL (65-110); Potassium 4.1 mmol/L (3.4-5.0); Sodium 137 mmol/L (137-145)
== END 2024-09-20 11:34 | disposition home or self-care (01) ==
LOC: ANHLAB 11:35
PROVIDERS: PCP Nurse Practitioner; Visit Provider Nurse Practitioner
DX: K51.20 Ulcerative (chronic) proctitis without complications (principal)
CPT/HCPCS: 36415; 80053; 85027; 85652; 86140

== ENCOUNTER 2025-03-28 07:41 | Observation (INO) | payer OTHER, SELFPAY ==
[2025-03-28] VITALS (34 sets, daily range): BP systolic 113–137; BP diastolic 61–91; PULSE 54–83; RESP 15–20; TEMP 36.4–36.8; O2SAT 95–100; BMI 24.6
--- NOTE | ~2025-03-28 | CT_ITS ---
Antony Brenner EXAMINATION: CT abdomen pelvis w con COMPARISON: Comparison MRI 01/17/2020. HISTORY: Right side abdominal pain TECHNIQUE: Axial images were obtained through the abdomen, pelvis post administration of IV contrast. Oral contrast was also administered. Coronal reconstruction images were obtained from the axial views. CT scan performed using dose optimization techniques including the following automated exposure control; adjustment of mA and/or kV; use of iterative reconstruction technique. Automatic exposure control was used to reduce radiation dose. Permanent radiation dose record is archived to PACS. FINDINGS: CT abdomen: LUNG BASES: The lung bases are clear. The visualized portions of the heart and pericardium are unremarkable. LIVER: Unremarkable, liver contours intact, no lesions. SPLEEN: Unremarkable. KIDNEYS: Right Kidney: Right kidney there is a wedge-shaped focus of abnormal density measuring 2.5 x 2 cm in the inferior pole. Right kidney midpole subcentimeter probable renal cysts noted. Left Kidney: Unremarkable. No calculi. No hydronephrosis ADRENAL GLANDS: Unremarkable. PANCREAS: Unremarkable. GALLBLADDER/BILIARY: Unremarkable. No biliary dilatation. STOMACH AND ESOPHAGUS: Visualized stomach and esophagus within normal limits. BOWEL/MESENTERY: Minimal fecal content. No colitis or diverticulitis. No stranding within the mesentery. There are thickened or dilated loops of small bowel. The appendix is thickened measuring 8 mm although there is no periappendiceal stranding identified. ADENOPATHY/RETROPERITONEUM: No lymphadenopathy. AORTA/VASCULATURE: Normal caliber aorta. FREE FLUID OR FREE AIR: No free fluid.. CT pelvis: SOLID ORGANS/REPRODUCTIVE: Unremarkable. BLADDER: Within normal limits. OSSEOUS STRUCTURES: No acute osseous abnormality.No suspicious lesions. OVERLYING SOFT TISSUES: Unremarkable. IMPRESSION: 1. Minimal thickening of the appendix although there is no periappendiceal stranding to suggest acute appendicitis. Clinical correlation is required. 2. Focus of abnormal signal in the lower pole right kidney. Findings may reflect a renal infarct or pyelonephritis. Other etiologies are not excluded. Correlate with urinalysis. Contrast-enhanced MRI is suggested to further assess. Reviewed, dictated and finalized at location P. IMPRESSION: 1. Minimal thickening of the appendix although there is no periappendiceal stra nding to suggest acute appendicitis. Clinical correlation is required. 2. Focus of abnormal signal in the lower pole right kidney. Findings may reflec t a renal infarct or pyelonephritis. Other etiologies are not excluded. Correla te with urinalysis. Contrast-enhanced MRI is suggested to further assess.
--- NOTE | ~2025-03-28 | MR_ITS ---
EXAMINATION: MRA abdomen wo/w con DATE: 03/29/2025 13:34 INDICATION: Renal infarct TECHNIQUE: Magnetic resonance angiography (MRA) of the abdomen was performed without and with 15 mL Multihance intravenous contrast. Sequences included axial and coronal 2-D FIESTA, 3-D phase contrast at the level renal arteries and pre contrast and two sequential coronal postcontrast FSPGR from which rotating maximum intensity projection reconstructions were performed. COMPARISON: CT dated 03/28/2025 and MRI dated 01/17/2020 FINDINGS: Heart size is normal. No pericardial or pleural effusion. Liver, gallbladder, spleen, pancreas and bilateral adrenal glands are normal. Normal caliber abdominal aorta with no evidence stenosis, aneurysm or dissection. There is a small accessory right renal artery which supplies the upper pole. There is early bifurcation of the left renal artery with smaller artery also extending to supply the upper pole. No evident hemodynamically significant stenosis along the lateral renal arteries. There is a geographic region of decreased parenchymal enhancement at the anterior lower pole of the right kidney consistent with renal infarct which appears relatively recent given the absence of associated secondary atrophy. Contrast-enhanced renal branch vessels are seen extending to the region of infarct. Visualized portions of bowels are unremarkable with no obstruction. No pathologically enlarged abdominal lymphadenopathy. Normal bone marrow signal throughout. IMPRESSION: 1. End seen is a small region of likely relatively recent infarct involving the anterior lower pole of the right kidney. No evident hemodynamically significant stenosis, aneurysm or thrombosis of the bilateral renal arteries with the more peripheral branch renal arteries at the bilateral renal milena. Reviewed, dictated and finalized at location A. IMPRESSION: 1. End seen is a small region of likely relatively recent infarct involving the anterior lower pole of the right kidney. No evident hemodynamically significan t stenosis, aneurysm or thrombosis of the bilateral renal arteries with the mor e peripheral branch renal arteries at the bilateral renal milena.
--- OUTSIDE RECORDS SUMMARY | 2025-03-28 07:44 | XMS_ITS | Clinical Summary ---
Author Organization [facility] Address [place] [place] [address] Care Team Providers Care Catalytic Converter Operator Name Role Phone None, Provider MD Primary [...] Active Problems No known active problems Immunizations Immunization Administration Dates Next Due Influenza Adult (Generic) [...] Comments Blood Pressure 133/88 05/07/2024 4:19 PM BUYER RENTER Pulse 75 05/07/2024 4:19 PM BUYER RENTER Temperature 36.8 C (98.3 F) 05/07/2024 4:19 PM BUYER RENTER Respiratory Rate 16 05/07/2024 4:19 PM BUYER RENTER Oxygen Saturation 99% 05/07/2024 4:19 PM BUYER RENTER Inhaled Oxygen Concentration - - Weight 84.8 kg (187 lb) 05/07/2024 4:19 PM BUYER RENTER Height 180.3 cm (5' 11) 05/07/2024 4:19 PM BUYER RENTER Body Mass Index 26.08 05/07/2024 4:19 PM BUYER RENTER Plan of Treatment Health Maintenance Due Date Last Done Comments Annual Physical 1985 Hepatitis B Vaccines (1 of 3 - 19+ 3-dose series) 2001 HPV Vaccines (1 - 3-dose SCD M series) 2009 PHQ-2 (Physician [place]) 06/13/2024 05/07/2024 COVID-19 Vaccine (2023-2 5 season) 2025 Influenza Adult (#1) 2025 03/17/2019, 04/08/2016 DTaP, Tdap and Td Vaccines ( 2 - Td or Tdap) 01/07/2026 01/08/2016 Hepatitis C Completed 09/03/2019 Meningococcal B Vaccine Aged Out No l onger eligible based on patient's age to complete this topic Meningococcal Vaccine Aged Out No mitchell jesica eligible based on patient's age to complete this topic Pneumococcal Vaccine: Pediatrics (0 to 5 Years) and At-Risk Patients (6 to 49 Years) Aged Out No longer eligible b ased on patient's age to complete this topic RSV Immunizations Under 20 Months Aged Out No longer eligible b ased on patient's age to complete this topic Procedures Procedure Name Priority Date/Time Associated Diagnosis Comments HEPATITIS PANEL ACUTE Routine 09/03/2019 7:57 AM CDT Acid phosphatase elevated from Last 3 Months or Most Recently Relevant to Health Maintenance Results * HEPATITIS A,B,& C (09/03/2019 7:57 AM CDT) HEPATITIS B SURFACE AG NON-REACTI VE NON-REACTI VE 09/03/2019 2:17 PM CDT [facility] HEP B CORE TOTAL AB NON-REACTI VE NON-REACTI VE 09/03/2019 2:41 PM CDT [facility] HEP B SURFACE AB NON-REACTI VE 09/03/2019 2:15 PM CDT [facility] HAV IGM NON-REACTI VE NON-REACTI VE 09/03/2019 3:07 PM CDT [facility] HEPATITIS C AB NON-REACTI VE NON-REACTI VE 09/03/2019 2:40 PM CDT [facility] 09/03/2019 7:57 AM CDT us Yudelka Gaston DO LABORATORY Final Resul t [facility] [address] [place] [address], from Last 3 Months or Most Recently Relevant to Health Maintenance Insurance [employer] Care Teams Catalytic Converter Operator Relationship Specialty Start Date End Date None, Provider, PCP - General UNKNOWN PHYSICIAN SPECIALTY 06/29/22
--- NOTE | 2025-03-28 07:55 | PC.NURSE ---
Pt unable to void at this time
[2025-03-28 08:00] LABS: Hematocrit 45.6 % (42.0-52.0); Hemoglobin 15.0 g/dL (14.0-18.0); Immature Granulocyte Percent A 0.2 % (0-0.5); Lymphocytes Absolute Auto 1.60 K/mm3 (0.9-3.2); Mean Corpuscular HGB Conc 32.9 g/dl (32-36); Mean Corpuscular Hemoglobin 26.8 pg (26-34); Mean Corpuscular Volume 81.4 fl (80-100); Nucleated Red Blood Cells Absolute Auto 0.000 K/mm3 (0.0-0.012); Nucleated Red Blood Cells Perc 0.0 % (0.0-0.2); Platelet Count Result 206 k/mm3 (150-375); Red Blood Count 5.60 M/mm3 (4.6-6.20); White Blood Count 8.1 K/mm3 (4.5-10.0)
[2025-03-28 08:13] LABS: Alanine Aminotransferase 30 U/L (6-50); Albumin Level 4.6 g/dL (3.5-5.1); Alkaline Phosphatase 73 U/L (38-126); Anion Gap 7 mmol/L (4-12); Aspartate Amino Transferase 31 U/L (17-59); Bilirubin,Total 0.6 mg/dL (0.2-1.3); Blood Urea Nitrogen 18 mg/dL (9-20); Calcium 9.9 mg/dL (8.4-10.2); Carbon Dioxide 30 mmol/L (22-30); Chloride 101 mmol/L (98-107); Estimated CRCL calculation 81 ml/min; Estimated Glomerular Filt Rate > 60; Glucose 120 mg/dL (65-110); Lipase 44 U/L (23-300); Potassium 4.1 mmol/L (3.4-5.0); Sodium 138 mmol/L (137-145); Total Protein 7.7 g/dL (6.3-8.2)
--- NOTE | 2025-03-28 08:18 | PC.NURSE ---
last oral intake at 0400.
--- OUTSIDE RECORDS SUMMARY | 2025-03-28 09:02 | XMS_ITS | Clinical Summary ---
Author Organization [facility] Address [facility] [place] [address] Care Team Providers Care Show Card Letterer Name Role Phone None, Provider MD Primary [...] Comments Blood Pressure 133/88 05/07/2024 4:19 PM PARI MUTUAL TICKET CHECKER Pulse 75 05/07/2024 4:19 PM PARI MUTUAL TICKET CHECKER Temperature 36.8 C (98.3 F) 05/07/2024 4:19 PM PARI MUTUAL TICKET CHECKER Respiratory Rate 16 05/07/2024 4:19 PM PARI MUTUAL TICKET CHECKER Oxygen Saturation 99% 05/07/2024 4:19 PM PARI MUTUAL TICKET CHECKER Inhaled Oxygen Concentration - - Weight 84.8 kg (187 lb) 05/07/2024 4:19 PM PARI MUTUAL TICKET CHECKER Height 180.3 cm (5' 11) 05/07/2024 4:19 PM PARI MUTUAL TICKET CHECKER Body Mass Index 26.08 05/07/2024 4:19 PM PARI MUTUAL TICKET CHECKER Plan of Treatment Health Maintenance Due Date Last Done Comments Annual Physical 1985 Hepatitis B Vaccines (1 of 3 - 19+ 3-dose series) 2001 HPV Vaccines (1 - 3-dose SCD M series) 2009 PHQ-2 (Physician [place]) 06/13/2024 05/07/2024 COVID-19 Vaccine (2023-2 5 season) [...] VE NON-REACTI VE 09/03/2019 2:17 PM CDT [facility] HEP B CORE TOTAL AB NON-REACTI VE NON-REACTI VE 09/03/2019 2:41 PM CDT [facility] HEP B SURFACE AB NON-REACTI VE 09/03/2019 2:15 PM CDT [facility] HAV IGM NON-REACTI VE NON-REACTI VE 09/03/2019 3:07 PM CDT [facility] HEPATITIS C AB NON-REACTI VE NON-REACTI VE 09/03/2019 2:40 PM CDT [facility] 09/03/2019 7:57 AM CDT us Yudelka Gaston DO LABORATORY Final Resul t [facility] [address] [place] [address], from Last 3 Months or Most Recently Relevant to Health Maintenance Insurance [employer] Care Teams Show Card Letterer Relationship Specialty Start Date End Date None, Provider, PCP - General UNKNOWN PHYSICIAN SPECIALTY 06/29/22
[2025-03-28 09:06] LABS: Add Urine Microscopic? YES; Appearance Urine Clear (Clear); Glucose Urine UA Negative (Negative); Leukocyte Esterase Ur Negative LEU/UL (Negative); Nitrate Urine Negative (Negative); Non Pathogenic Casts 0-2; Specific Grav Ur > 1.045 (1.001-1.035)
--- NOTE | 2025-03-28 10:36 | ECG_ITS ---
Test Date: 2025-03-28 11:14:47 Measurements Intervals [place] Rate: 58 P: 43 DE: 164 QRS: 9 QRSD: 102 T: 4 QT: 389 QTc: 384 Interpretive Statements SINUS BRADYCARDIA INCOMPLETE RIGHT BUNDLE BRANCH BLOCK BORDERLINE ST-T WAVE ABNORMALITY- INFERIOR LEADS BASELINE ARTIFACT- I, II, III, AVR, AVL BORDERLINE ECG No previous ECG available for comparison Electronically Signed On 03-28-2025 12:11:51 CDT by Preston Wright D.O.
--- NOTE | 2025-03-28 10:39 | ED.ABDPAIN ---
HPI - Abdominal Pain General Chief Complaint: Abdominal Pain Stated Complaint: abdominal pain 5-6 days Time Seen by Provider: 03/28/25 08:16 History of Present Illness HPI narrative: This is a 44-year-old male, with history of ulcerative proctitis, presenting to the emergency department complaining of right sided abdominal pain for the past 4 days. The patient states the pain began throughout the abdomen, was rated dull, and gradually worsened and began localizing towards the right side. This is associated with nausea though no diarrhea or vomiting. He denies fevers, weakness/numbness, chest pain, shortness of breath or loss of consciousness. He has no other complaints at this time. Related Data Allergies Allergy/AdvReac Type Severity Reaction Status Date / Time No Known Allergies Allergy Verified 03/28/25 08:17 Review of Systems Review of Systems: All systems reviewed & are unremarkable except as noted in HPI and below PMFSH Past Medical History Medical History Rectal leakage Tenesmus (rectal) Elevated liver enzymes Ulcerative (chronic) proctitis Colitis Lower abdominal pain Diarrhea Migraine Surgical History Surgical History History of colonoscopy Social History Social History Smoking status: Former smoker Tobacco type: cigarettes Smoking end date: 06/13/08 Alcohol intake: current Drinks per week: 3 Substance use: never Substance use type: does not use Living arrangements: alone Gender identity (if verbalized by the patient): Male Sexual Orientation (if Verbalized by the Patient): Straight or Heterosexual Spiritual care concerns: No Exam Narrative: GENERAL: Well-developed, well-nourished, and in no acute distress. HEAD: Normocephalic, atraumatic. EYES: PERRLA and EOMI. CHEST: Clear to auscultation. No respiratory distress. No wheezes rales or rhonchi HEART: Regular rate and rhythm. No murmur heard. Normal peripheral pulses. ABDOMEN: Soft, tender palpation in the right lower quadrant without rebound or guarding, nondistended, normal active bowel sounds. Rovsing sign positive EXTREMITIES: Normal range of motion. No edema. SKIN: Warm, dry, no rash. NEURO: Alert and oriented x3. No focal deficit. Moving all 4 limbs spontaneously PSYCH: Normal mood and affect. Course Course Emergency Course: 10:35 - CBC within normal limits. Chemistries demonstrate slightly of blood glucose of 120 but is otherwise unremarkable. Urinalysis not concerning for urinary tract infection. CT abdomen pelvis demonstrates a wedge abnormality of the right kidney and appendix is thickened measuring 8 mm. Given the patient's tenderness to palpation in the right lower quadrant and positive Rovsing sign, I suspect acute appendicitis. I discussed the CT findings with radiologist, Dr. Preston who voices concern for malignancy as a cause of the wedge deformity. Outpatient MRI is recommended. General surgery was paged for consultation. 12:00 - General surgery WARP SCOURING VAT TENDER evaluated the patient at bedside and will review CT images with Radiology. 13:35 - I discussed the patient with [facility] transfer and pumphouse operator chief, JUSTYNA Beard. 13:42 - I discussed the patient with [facility] transfer and pumphouse operator chief JUSTYNA Umaña. 13:50 - I discussed the patient with [facility] vascular surgeon, Dr. Bruno who notes no acute intervention from a vascular surgery standpoint is required at this time and recommends medical workup for embolic disease. 13:57 - I discussed the patient with [facility] vascular surgeon, Dr. Johnson who recommends the same. 15:02 - After discussing the patient with retail center receptionist, Dr. Aguero at hospitalist request, I discussed the patient with a, WARP SCOURING VAT TENDER Dahiana who accepts admission. Vital Signs Vital signs: Vital Signs Temperature 98.1 F 03/28/25 07:46 Pulse Rate 75 03/28/25 07:46 Respiratory Rate 15 03/28/25 07:46 Blood Pressure 137/86 03/28/25 07:46 Pulse Oximetry 99 03/28/25 07:46 Oxygen Delivery Room Air 03/28/25 07:46 Temperature 98.0 F 03/28/25 12:15 Pulse Rate 60 03/28/25 12:15 Respiratory Rate 20 03/28/25 12:15 Blood Pressure 125/82 03/28/25 13:31 Pulse Oximetry 100 03/28/25 13:45 Oxygen Delivery Room Air 03/28/25 07:46 MDM - Abdominal Pain MDM Narrative Medical decision making narrative: Plan: Labs, imaging, pain control, reassess Differential Diagnosis Differential diagnosis: Likely abdominal pain, acute appendicitis, calculus of kidney, diverticulitis, gastroenteritis, pancreatitis, small bowel obstruction and other (Metabolic abnormality, UTI, pyelonephritis, other) Lab Data 03/28/25 07:54 03/28/25 07:54 Labs: Lab Results 03/28/25 03/28/25 03/28/25 Range/Units 07:54 08:52 10:58 WBC 8.1 (4.5-10.0) K/mm3 RBC 5.60 (4.6-6.20) M/mm3 Hgb 15.0 (14.0-18.0) g/dL Hct 45.6 (42.0-52.0) % MCV 81.4 (80-100) fl MCH 26.8 (26-34) pg MCHC 32.9 (32-36) g/dl RDW 12.5 (11.5-14.5) % Plt Count 206 (150-375) k/mm3 MPV 10.6 H (7.4-10.4) fl Immature Gran % (Auto) 0.2 (0-0.5) % Neut % (Auto) 70.2 (45.5-73.1) % Lymph % (Auto) 19.8 (18.3-44.2) % [place] % (Auto) 7.7 (2.6-8.5) % Eos % (Auto) 1.6 (0-4.4) % Baso % (Auto) 0.5 (0.2-1.2) % Lymph # (Auto) 1.60 (0.9-3.2) K/mm3 [place] # (Auto) 0.6 (0.1-0.6) K/mm3 Eos # (Auto) 0.1 (0-0.3) K/mm3 Baso # (Auto) 0.0 (0.0-0.1) K/mm3 Abs Immat Gran (auto) 0.02 (0.00-0.031) K/mm3 Absolute Neuts (auto) 5.7 (1.3-6.7) K/mm3 Absolute Nucleated RBC 0.000 (0.0-0.012) K/mm3 Nucleated RBC % 0.0 (0.0-0.2) % Sodium 138 (137-145) mmol/L Potassium 4.1 (3.4-5.0) mmol/L Chloride 101 (98-107) mmol/L Carbon Dioxide 30 (22-30) mmol/L Anion Gap 7 (4-12) mmol/L BUN 18 (9-20) mg/dL Creatinine 1.12 (0.7-1.3) mg/dL Estim Creat Clear Calc 81 ml/min Estimated GFR > 60 (59 - ) Glucose 120 H (65-110) mg/dL Lactic Acid 0.8 (0.7-2.0) mmol/L Calcium 9.9 (8.4-10.2) mg/dL Total Bilirubin 0.6 (0.2-1.3) mg/dL AST 31 (17-59) U/L ALT 30 (6-50) U/L Alkaline Phosphatase 73 (38-126) U/L Total Protein 7.7 (6.3-8.2) g/dL Albumin 4.6 (3.5-5.1) g/dL Lipase 44 (23-300) U/L Urine Color Yellow (Yellow) Urine Appearance Clear (Clear) Urine pH 7.0 (5.0-9.0) Ur Specific [place] > 1.045 H (1.001-1.035) Urine Protein Trace (Negative) mg/dL Urine Glucose (UA) Negative (Negative) mg/dL Urine Ketones Negative (Negative) mg/dL Ur Blood (Man) Negative (Negative) Urine Nitrate Negative (Negative) Urine Bilirubin Negative (Negative) Urine Urobilinogen 0.2 (<2.0) mg/dL Leukocyte Esterase Rfl Negative (Negative) JUDI/UL Urine RBC 0-2 (0-2) /hpf Urine WBC 0-5 (0-3) /hpf Ur Squamous Epith Cells None seen (Few) /hpf Urine Bacteria None seen /hpf Urine Casts 0-2 Imaging Data Radiologist's impression: ITS Impressions Abdomen/Pelvis CT 03/28/25 08:51 IMPRESSION: 1. Minimal thickening of the appendix although there is no periappendiceal stranding to suggest acute appendicitis. Clinical correlation is required. 2. Focus of abnormal signal in the lower pole right kidney. Findings may reflect a renal infarct or pyelonephritis. Other etiologies are not excluded. Correlate with urinalysis. Contrast-enhanced MRI is suggested to further assess. ECG Data EKG #1: Attestation: I personally reviewed and interpreted this ECG as follows: ECG completion date: 03/28/25 ECG completion time: 11:14 Prior ECG tracings: not available for review Interpretation: Sinus bradycardia, rate 58, normal axis, no ST segment elevations or T-wave inversions concerning for ischemia, incomplete right bundle branch block with otherwise normal intervals and QTC of 386. Discharge Plan Discharge Clinical Impression: Abdominal pain, acute, right lower quadrant, Infarction of kidney Patient Disposition: Still a Patient Condition: Stable Instructions: Antibiotic Form Patient Language: Wallisian Prescriptions: No Action mesalamine 1.2 gram tablet,delayed release (DR/EC) 2.4 g PO DAILY 90 Days Qty: 180 3RF Follow-up/Referrals: Julia Cuevas APRN [Primary Care Provider, Gastroenterology] Time of Disposition: 15:02
[2025-03-28] MEDS: SODIUM CHLORIDE 0.9% IV 1,000 ML 999 ML IV CONT (10:53)
[2025-03-28] MEDS: PIPERACILLIN/TAZOBACTAM SOD 3.375 GM in SODIUM CHLORIDE 0.9% IV 50 ML 100 ML IVPB (10:53)
[2025-03-28] MEDS: ACETAMINOPHEN 500 MG TABLET 1000 MG PO (10:53)
--- NOTE | 2025-03-28 12:53 | P.CONGS_ITS ---
Assessment and Plan Assessment and plan (1) Abnormal CT of the abdomen: Code(s): R93.5 - Abnormal findings on diagnostic imaging of other abdominal regions, including retroperitoneum Status: Acute Assessment and Plan: * The patient presents with 4 days of abdominal pain. His pain was initially in the upper abdomen and is now in the right mid to lateral abdomen. He is actually not having any abdominal pain at the time of my exam, but does have some mild RLQ and right mid abdominal tenderness. WBC count is normal. CT scan was reviewed with the Radiologist and his appendix does not appear to be dilated, but has some mild wall thickening without any surrounding inflammatory stranding to suggest acute appendicitis. These findings could also be related to his history of ulcerative colitis. With him having 4 days of symptoms, you would anticipate seeing leukocytosis or more inflammatory changes of and around the appendix on the CT scan. It seems unlikely that this is acute appendicitis. We discussed this in detail. His renal infarct could be another potential source for his abdominal pain. With the lack of evidence of appendicitis, there is no need for antibiotics or surgical intervention at this time. If he is being admitted for his renal infarct, then we would plan to repeat labs again tomorrow and can monitor him with serial abdominal exams. I discussed with the patient that if he develops leukocytosis and more signs of acute appendicitis, then we would re-evaluate the need for possible surgery at that time. (2) Renal infarct: Code(s): N28.0 - Ischemia and infarction of kidney Status: Acute Assessment and Plan: * CT reviewed with the Radiologist who suspects the findings of lack of enhancement at the lower pole of the right kidney is most likely related to renal infarct. Less likely pyelonephritis, UA normal. Unlikely to be malignancy given the appearance. Etiology unclear. He would likely need further workup with MRA or CTA to determine appropriate management. EKG did not show afib and CT did not show any obvious atherosclerotic plaques. May also need hypercoagulable workup. Discussed CT findings with the ED physician, who is going to discuss with the Hospitalist service regarding this issue. (3) Ulcerative (chronic) proctitis: Qualifiers: Digestive disease complication type: without complication Qualified Code(s): K51.20 - Ulcerative (chronic) proctitis without complications Code(s): K51.20 - Ulcerative (chronic) proctitis without complications Status: Acute Assessment and Plan: * Hx of ulcerative proctitis treated by GI. No recent flare-ups. Currently on mesalamine. Plan I have discussed the patient's case and plan of care with Dr. Castle. History of Present Illness Consult details Consult date: 03/28/25 Reason for consult: other (Possible appendicitis) Requesting physician: Tanner Arauz MD Narrative: This is a 44-year-old man with history of ulcerative proctosigomiditis, who we have been asked to see in surgical consultation for possible acute appendicitis. He reports an onset of upper abdominal pain 4 days ago when he woke up in the morning. His pain would come and go throughout the day. It seemed to be aggravated by eating. He had severe nausea the first and second day, but it resolved. No vomiting. This morning, he reports his pain moved to the right side of his abdomen, and he points to the right mid abdomen and extending laterally. Bending and certain movements do not aggravated his pain. His pain got worse this morning and ultimately he came into the ED for evaluation. Labs were unremarkable with a normal WBC count. CT scan report showed minimal thickening of the appendix but without any inflammatory periappendiceal stranding to suggest acute appendicitis. Also is focus of abnormal signal in the lower pole right kidney that could reflect renal infarct vs pyelonephritis vs other etiologies, recommending correlation with UA and MRI to further assess. Our service was contacted by the ED physician to evaluate for possible appendicitis and he is now seen in the ER. He denies any previous abdominal surgeries. He does have a hx of ulcerative procosigmoiditis treated by GI with his last flare-up about 1 year ago. He takes mesalamine daily. His vital signs are stable and he is afebrile. He is actually not having any abdominal pain at the time of my exam. He denies any personal or family history of blood clots or clotting disorders. EKG showed sinus bradycardia. He is a nonsmoker. Review of Systems 2 Review of Systems: All systems reviewed & are unremarkable except as noted in HPI and below PMFSH Past Medical History Medical History Rectal leakage Tenesmus (rectal) Elevated liver enzymes Ulcerative (chronic) proctitis Colitis Lower abdominal pain Diarrhea Migraine Surgical History Surgical History History of colonoscopy Social History Social History Smoking status: Former smoker Tobacco type: cigarettes Smoking end date: 06/13/08 Alcohol intake: current Drinks per week: 3 Substance use: never Substance use type: does not use Living arrangements: alone Gender identity (if verbalized by the patient): Male Sexual Orientation (if Verbalized by the Patient): Straight or Heterosexual Spiritual care concerns: No Meds Home Medications and Allergies Home Medications ?Medication ?Instructions ?Recorded ?Confirmed ?Type mesalamine 1.2 gram tablet,delayed 2.4 g (2 x 1.2 gram ) PO DAILY 3 01/23/25 Rx release months #180 tabs Allergies Allergy/AdvReac Type Severity Reaction Status Date / Time No Known Allergies Allergy Verified 03/28/25 08:17 Vital Signs Vital Signs - 24 hr 03/28/25 07:46 03/28/25 08:02 03/28/25 08:03 Temperature 98.1 F Pulse Rate 75 Respiratory Rate 15 Blood Pressure 137/86 117/88 Pulse Oximetry 99 99 99 Oxygen Delivery Room Air 03/28/25 08:20 03/28/25 08:39 03/28/25 08:48 Temperature Pulse Rate 83 Respiratory Rate 20 20 Blood Pressure Pulse Oximetry 99 100 98 Oxygen Delivery 03/28/25 09:37 03/28/25 10:47 03/28/25 11:00 Temperature Pulse Rate Respiratory Rate 20 Blood Pressure Pulse Oximetry 100 100 100 Oxygen Delivery 03/28/25 11:15 03/28/25 11:37 03/28/25 11:51 Temperature 98.3 F Pulse Rate Respiratory Rate Blood Pressure Pulse Oximetry 100 100 Oxygen Delivery 03/28/25 12:00 03/28/25 12:15 Temperature 98.0 F Pulse Rate 60 Respiratory Rate 20 Blood Pressure 124/81 Pulse Oximetry 100 100 Oxygen Delivery Exam 2 Const: General: comfortable and no acute distress Nutritional Appearance: a verage body habitus Orientation/consciousness: patient oriented x3 HENMT: Head: normocephalic and atraumatic Ears: hearing grossly normal bilaterally Mouth: Yes moist mucous membranes Eyes: General: appearance normal, both eyes and all related structures P upils: Equal, round and reactive pupils present Neck: Neck: normal visual inspection and full ROM Resp: Effort & Inspection: no respiratory distress Auscultation: clear to auscultation bilaterally Cardio: Rate: regular rate Rhythm: regular rhythm Peripheral pulses: P eripheral pulses 2+ throughout GI: Inspection: non-distended and no scars GI Palp: Yes Soft to palpation, Yes Tenderness to palpation present (GI) (RLQ and right mid abdomen), No Guarding due to palpation present (GI), Yes No hepatosplenomegaly present, No Hernia present and No Rebound tenderness present Percussion: Yes normal to percussion Auscultation: normal bowel sounds Rectal Exam: deferred Skin: General skin exam: normal color Neuro: General: moves all extremities and no focal motor deficits Speech: n ormal speech Motor exam (neuro): 5/5 motor strength present throughout Extrem: General: normal to inspection and no edema Psych: Mental Status: mental status grossly normal Attitude: cooperative Insight: Good insight present (Psych) Judgement: Good judgement present (Psych) Results Labs 03/28/25 07:54 03/28/25 07:54 Labs: Abnormal lab results 03/28/25 03/28/25 Range/Units 07:54 08:52 MPV 10.6 H (7.4-10.4) fl Glucose 120 H (65-110) mg/dL Ur Specific [place] > 1.045 H (1.001-1.035) Diabetes panel 03/28/25 Range/Units 07:54 Sodium 138 (137-145) mmol/L Potassium 4.1 (3.4-5.0) mmol/L Chloride 101 (98-107) mmol/L Carbon Dioxide 30 (22-30) mmol/L BUN 18 (9-20) mg/dL Creatinine 1.12 (0.7-1.3) mg/dL Glucose 120 H (65-110) mg/dL Calcium 9.9 (8.4-10.2) mg/dL AST 31 (17-59) U/L ALT 30 (6-50) U/L Alkaline Phosphatase 73 (38-126) U/L Total Protein 7.7 (6.3-8.2) g/dL Albumin 4.6 (3.5-5.1) g/dL Calcium panel 03/28/25 Range/Units 07:54 Calcium 9.9 (8.4-10.2) mg/dL Albumin 4.6 (3.5-5.1) g/dL Pituitary panel 03/28/25 Range/Units 07:54 Sodium 138 (137-145) mmol/L Potassium 4.1 (3.4-5.0) mmol/L Chloride 101 (98-107) mmol/L Carbon Dioxide 30 (22-30) mmol/L BUN 18 (9-20) mg/dL Creatinine 1.12 (0.7-1.3) mg/dL Glucose 120 H (65-110) mg/dL Calcium 9.9 (8.4-10.2) mg/dL Adrenal panel 03/28/25 Range/Units 07:54 Sodium 138 (137-145) mmol/L Potassium 4.1 (3.4-5.0) mmol/L Chloride 101 (98-107) mmol/L Carbon Dioxide 30 (22-30) mmol/L BUN 18 (9-20) mg/dL Creatinine 1.12 (0.7-1.3) mg/dL Glucose 120 H (65-110) mg/dL Calcium 9.9 (8.4-10.2) mg/dL Total Bilirubin 0.6 (0.2-1.3) mg/dL AST 31 (17-59) U/L ALT 30 (6-50) U/L Alkaline Phosphatase 73 (38-126) U/L Total Protein 7.7 (6.3-8.2) g/dL Albumin 4.6 (3.5-5.1) g/dL All other labs normal. Imaging Additional studies: ITS Impressions Abdomen/Pelvis CT 03/28/25 08:51 IMPRESSION: 1. Minimal thickening of the appendix although there is no periappendiceal stranding to suggest acute appendicitis. Clinical correlation is required. 2. Focus of abnormal signal in the lower pole right kidney. Findings may reflect a renal infarct or pyelonephritis. Other etiologies are not excluded. Correlate with urinalysis. Contrast-enhanced MRI is suggested to further assess.
[2025-03-28] MEDS: KETOROLAC 30 MG/ML VIAL (*BKC) IV PUSH (14:04)
--- NOTE | 2025-03-28 15:05 | P.HP_ITS ---
H&P: HPI History of Present Illness Date/Time: 03/28/25 15:05 Chief Complaint: Abdominal pain Narrative: 44-year-old male with past medical history ulcerative proctitis, migraine of presents the hospital with acute abdominal pain. Patient complains of right lower quadrant pain on palpation. Denies rebound tenderness, denies fevers chills, unintentional weight loss . Patient denies recent surgery, travel, cl otting disorders, recent infection, shortness of breath. Patient states that the abdominal pain started this morning it was sharp acute nature. He states that he was double over in pain. He states that the pain is improved now 3/10 without pain medications. CBCs unremarkable, BMP is unremarkable, lactic acid 0.8, liver function within normal limits, UA with no infection. CT abdomen pelvis demonstrates a wedge abnormality of the right kidney and appendix is thickened measuring 8 mm. Given the patient's tenderness to palpation in the right lower quadrant and positive Rovsing sign, ED is had suspect acute appendicitis. ED discussed the CT findings with radiologist, Dr. Preston who voices concern for malignancy as a cause of the wedge deformity. MRI is recommended. 13:50 -ED discussed the patient with [facility] vascular surgeon, Dr. Bruno who notes no acute intervention from a vascular surgery standpoint is required at this time and recommends medical workup for embolic disease. 13:57 -ED discussed the patient with [facility] vascular surgeon, Dr. Johnson who recommends the same. 15:02 - After discussing the patient with tread tuber machine operator, Dr. Aguero Review of Systems Review of Systems: 12 systems were reviewed and are negativ e except for as per HPI. [facility] Past Medical History Medical History Rectal leakage Tenesmus (rectal) Elevated liver enzymes Ulcerative (chronic) proctitis Colitis Lower abdominal pain Diarrhea Migraine Surgical History Surgical History History of colonoscopy Family History Family History (Updated 03/28/25 @ 17:22 by Brett Retana RN) Mother Uterine cancer Grandparent Cancer Father Heart attack Social History Social History Years smoked: 4 Smoking status: Former smoker Tobacco type: cigarettes Smoking end date: 06/13/08 Alcohol intake: current Drinks per week: 0 Substance use: never Substance use type: does not use Lack of Transportation: No Lack of Food: Never True Current Housing: I Have Housing Concerned About Future Housing: No Difficulty Paying Gas/Electric Bills: No Difficulty Paying for Meds: No Currently Unemployed: No Education: Decline to Answer Difficulty w/ Childcare or Family Care: No Living arrangements: alone Gender identity (if verbalized by the patient): Male Sexual Orientation (if Verbalized by the Patient): Straight or Heterosexual Spiritual care concerns: No Meds Home Medications and Allergies Home Medications ?Medication ?Instructions ?Recorded ?Confirmed ?Type loratadine 10 mg tablet (Claritin) 10 mg PO DAILY 03/1303/28/25 History mesalamine 1.2 gram tablet,delayed 3.6 g PO DAILY 03/1303/28/25 History release Allergies Allergy/AdvReac Type Severity Reaction Status Date / Time No Known Allergies Allergy Verified 03/28/25 17:07 Vital Signs Vital Signs - 24 hr 03/28/25 07:46 03/28/25 08:02 03/28/25 08:03 Temperature 98.1 F Pulse Rate 75 Respiratory Rate 15 Blood Pressure 137/86 117/88 Pulse Oximetry 99 99 99 Oxygen Delivery Room Air 03/28/25 08:20 03/28/25 08:39 03/28/25 08:48 Temperature Pulse Rate 83 Respiratory Rate 20 20 Blood Pressure Pulse Oximetry 99 100 98 Oxygen Delivery 03/28/25 09:37 03/28/25 10:47 03/28/25 11:00 Temperature Pulse Rate Respiratory Rate 20 Blood Pressure Pulse Oximetry 100 100 100 Oxygen Delivery 03/28/25 11:15 03/28/25 11:37 03/28/25 11:51 Temperature 98.3 F Pulse Rate Respiratory Rate Blood Pressure Pulse Oximetry 100 100 Oxygen Delivery 03/28/25 12:00 03/28/25 12:15 03/28/25 12:38 Temperature 98.0 F Pulse Rate 60 Respiratory Rate 20 Blood Pressure 124/81 Pulse Oximetry 100 100 98 Oxygen Delivery 03/28/25 12:45 03/28/25 13:09 03/28/25 13:22 Temperature Pulse Rate Respiratory Rate Blood Pressure Pulse Oximetry 100 100 99 Oxygen Delivery 03/28/25 13:30 03/28/25 13:31 03/28/25 13:45 Temperature Pulse Rate Respiratory Rate Blood Pressure 125/82 Pulse Oximetry 100 100 100 Oxygen Delivery Exam Narrative: General: well appearing, appears stated age. HEENT: normocephalic, atraumatic. Mucous membranes moist. EOMI, PERRLA, bilateral sclera anicteric, no conjunctival injection. Neck supple without JVD, lymphadenopathy, or bruit. Respiratory: clear to ascultation bilaterally. No rales/rhonic/wheezes. Cardiovascular: Regular rate and rhythm, normal S1-S2 upon ascultation. No murmurs, rubs, or clicks. PMI is nondisplaced, capillary refill less than 3 second. Abdomen: Soft, round, no pulsatile masses, nondistended No rebound, no guarding. No CVA tenderness, no hepatosplenomegaly. Bowel sounds present to all four quadrants. No high pitch or tinkling sounds, resonant to percussion. Mild tenderness on palpation Extremities: No cyanosis, clubbing, or edema present. Pulses are palpable 2/2. Active ROM to all four extremities. Neuro: Alert and orientated x 4. PERRLA. Cranial nerves 2-12 intact without focal deficit. Skin: Warm, dry, and intact, without rash, erythema, or lesion. Psych: pleasant, cooperative, normal speech, normal affect, no hallucinations, no dysarthia H&P: Results Labs Labs: Short CBC 03/28/25 Range/Units 07:54 WBC 8.1 (4.5-10.0) K/mm3 Hgb 15.0 (14.0-18.0) g/dL Hct 45.6 (42.0-52.0) % Plt Count 206 (150-375) k/mm3 [facility] 03/28/25 07:54 Sodium 138 Potassium 4.1 Chloride 101 Carbon Dioxide 30 BUN 18 Creatinine 1.12 Glucose 120 H Calcium 9.9 Liver Function 03/28/25 Range/Units 07:54 Total Bilirubin 0.6 (0.2-1.3) mg/dL AST 31 (17-59) U/L ALT 30 (6-50) U/L Alkaline Phosphatase 73 (38-126) U/L Albumin 4.6 (3.5-5.1) g/dL Urine 10/16/25 Range/Units 08:52 Urine Color Yellow (Yellow) Urine Appearance Clear (Clear) Urine pH 7.0 (5.0-9.0) Ur Specific [place] > 1.045 H (1.001-1.035) Urine Protein Trace (Negative) mg/dL Urine Glucose (UA) Negative (Negative) mg/dL Assessment and Plan Assessment and plan (1) Lower abdominal pain: Code(s): R10.30 - Lower abdominal pain, unspecified Status: Acute Assessment and Plan: CT showing Minimal thickening of the appendix although there is no periappendiceal stranding to suggest acute appendicitis. Surgery consulted Per surgery With the lack of evidence of appendicitis, there is no need for antibiotics or surgical intervention at this time Pain management NPO midnight per surgery (2) Infarction of kidney: Code(s): N28.0 - Ischemia and infarction of kidney Status: Acute Assessment and Plan: Focus of abnormal signal in the lower pole right kidney. Findings may reflect a renal infarct or pyelonephritis or malignancy. UA showing no signs of infection MRI abdomen pelvis pending with contrast pending Hematology/Oncology for blood disorder workup Weight based Lovenox (3) Ulcerative (chronic) proctitis: Qualifiers: Digestive disease complication type: without complication Qualified Code(s): K51.20 - Ulcerative (chronic) proctitis without complications Code(s): K51.20 - Ulcerative (chronic) proctitis without complications Status: Acute Assessment and Plan: Patient may bring med in from home Quality VTE Prophylaxis VTE prophylaxis: mechanical ordered and pharmacologic ordered Hospitalist MIPS Advance Care Plan I have confirmed that the patient's Advanced Care Plan is present, code status is documented, or surrogate decision maker is listed in patient medical record.: Yes Medication Reconciliation I have utilized all available resources to obtain, update and review the patients current medications (includes all prescriptions, OTC, herbals, morro abis, and nutritional supplements).: Yes
--- NOTE | 2025-03-28 15:28 | PC.NURSE ---
dinner tray ordered
--- NOTE | 2025-03-28 17:06 | ADMGEN ---
This patient, Antony Brenner, was admitted to [facility] Surg Room 307-01. Patient/family oriented to hospital policies and general routines including ID bracelet, bed and alarms, visiting hours, pain management, procedures, bathroom and other care routines, personal items, smoking policy, room service/diet, and visiting hours. Information on how to activate the Rapid Response Team has been discussed. Patient/Family are encouraged to report perceived risks to care and to ask questions if they do not understand what they are told or what they should do.
[2025-03-28] MEDS: ACETAMINOPHEN 325 MG TABLET 650 MG PO (19:33)
[2025-03-28] MEDS: HYDROcodone/acetaminophen (*CRX) 5-325 MG TABLET 1 TAB PO (23:32)
[2025-03-29] VITALS (7 sets, daily range): BP systolic 119–128; BP diastolic 73–78; PULSE 62–71; RESP 14–16; TEMP 35.9–36.6; O2SAT 98–100
[2025-03-29] MEDS: MORPHINE SULFATE (*CRX) 4 MG/ML INJ 2 MG IV PUSH ×2 (05:16→09:10)
[2025-03-29] MEDS: ENOXAPARIN 80 MG/0.8 ML SYRINGE SUB-Q ×2 (05:16→17:02)
[2025-03-29 06:21] LABS: Hematocrit 46.1 % (42.0-52.0); Hemoglobin 15.1 g/dL (14.0-18.0); Immature Granulocyte Percent A 0.4 % (0-0.5); Lymphocytes Absolute Auto 2.11 K/mm3 (0.9-3.2); Mean Corpuscular HGB Conc 32.8 g/dl (32-36); Mean Corpuscular Hemoglobin 27.0 pg (26-34); Mean Corpuscular Volume 82.5 fl (80-100); Nucleated Red Blood Cells Absolute Auto 0.000 K/mm3 (0.0-0.012); Nucleated Red Blood Cells Perc 0.0 % (0.0-0.2); Platelet Count Result 217 k/mm3 (150-375); Red Blood Count 5.59 M/mm3 (4.6-6.20); White Blood Count 8.4 K/mm3 (4.5-10.0)
[2025-03-29 06:41] LABS: Anion Gap 6 mmol/L (4-12); Blood Urea Nitrogen 16 mg/dL (9-20); Calcium 9.5 mg/dL (8.4-10.2); Carbon Dioxide 29 mmol/L (22-30); Chloride 102 mmol/L (98-107); Estimated CRCL calculation 84 ml/min; Estimated Glomerular Filt Rate > 60; Glucose 101 mg/dL (65-110); Potassium 4.2 mmol/L (3.4-5.0); Sodium 137 mmol/L (137-145)
--- NOTE | 2025-03-29 07:08 | PM.IMPN ---
Progress Note: A&P Assessment and Plan (1) Renal infarct: Code(s): N28.0 - Ischemia and infarction of kidney Status: Acute Assessment and Plan: CT abdomen/pelvis: Focus of abnormal signal in the lower pole right kidney. Findings may reflect a renal infarct or pyelonephritis. Surgery discussed patient with radiology, findings of lack of enhancement at the lower pole of the right kidney is most likely related to renal infarct. Less likely pyelonephritis. Unlikely to be malignancy given the appearance. - UA nonconcerning for infection, renal function WNL - EKG showing no afib, continue tele to assess for any arrhythmias causing clots - Continue therapeutic Lovenox pending heme/onc recommendations - MRA ordered to further assess End seen is a small region of likely relatively recent infarct involving the anterior lower pole of the right kidney. No evident hemodynamically significant stenosis, aneurysm or thrombosis of the bilateral renal arteries with the more peripheral branch renal arteries at the bilateral renal milena. - Consult heme/onc for embolic work up (2) Abnormal CT of the abdomen: Code(s): R93.5 - Abnormal findings on diagnostic imaging of other abdominal regions, including retroperitoneum Status: Acute Assessment and Plan: CT abdomen/pelvis showed minimal thickening of the appendix although there is no periappendiceal stranding to suggest acute appendicitis. Surgery was consulted for possible appendicitis After the imaging was reviewed with radiology appendix did not appear to be dilated, but has some mild wall thickening without any surrounding inflammatory stranding to suggest acute appendicitis. This could also be related to his history of ulcerative colitis vs renal infarct No antibiotics or surgical intervention required (3) Ulcerative (chronic) proctitis: Qualifiers: Digestive disease complication type: without complication Qualified Code(s): K51.20 - Ulcerative (chronic) proctitis without complications Code(s): K51.20 - Ulcerative (chronic) proctitis without complications Status: Acute Assessment and Plan: Hx of ulcerative proctitis treated by GI. No recent flare-ups. Currently on mesalamine. Time Spent With Patient Time with patient: 25 - 35 minutes Subjective Date/time seen: 03/29/25 07:08 Interval history: 44 year old male with past medical history of ulcerative proctosigomiditis presents to the hospital for abdominal pain. Patient is pleasant lying comfortably in bed. He states that his pain is significantly improved since admission. He continues to endorse slight right-sided abdominal pain but denies any associated nausea/vomiting. He has no other complaints denying chest pain, shortness a breath, palpitations. Review of Systems Review of Systems: All systems reviewed & are unremarkable except as noted in HPI and below Exam Narrative: AF HR 63 RR 16 Spo2 100 BP 119/74 General: male in no acute respiratory distress who is nontoxic appearing, sitting up in bed. HEENT: Normocephalic. Atraumatic. Extraocular movement intact. Sclera clear and anicteric. No facial asymmetry. Chest: Lungs are clear to auscultation bilaterally. No wheezes or crackles. CV: Heart was regular rate and rhythm. S1/S2. No murmurs, gallops, or rubs. Abd: Abdomen was soft. Tender to the right side/flank region on deep palpation. Nondistended. Positive bowel sounds. Ext: No clubbing, cyanosis, or edema. DP pulses bilaterally. Neuro: Patient is alert. Speech is clear. Objective Data Vital Signs Vital Signs: Vital Signs - 24 hr 03/28/25 07:46 03/28/25 08:02 03/28/25 08:03 Temperature 98.1 F Pulse Rate 75 Respiratory Rate 15 Blood Pressure 137/86 117/88 Pulse Oximetry 99 99 99 Oxygen Delivery Room Air 03/28/25 08:20 03/28/25 08:39 03/28/25 08:48 Temperature Pulse Rate 83 Respiratory Rate 20 20 Blood Pressure Pulse Oximetry 99 100 98 Oxygen Delivery 03/28/25 09:37 03/28/25 10:47 03/28/25 11:00 Temperature Pulse Rate Respiratory Rate 20 Blood Pressure Pulse Oximetry 100 100 100 Oxygen Delivery 03/28/25 11:15 03/28/25 11:37 03/28/25 11:51 Temperature 98.3 F Pulse Rate Respiratory Rate Blood Pressure Pulse Oximetry 100 100 Oxygen Delivery 03/28/25 12:00 03/28/25 12:15 03/28/25 12:38 Temperature 98.0 F Pulse Rate 60 Respiratory Rate 20 Blood Pressure 124/81 Pulse Oximetry 100 100 98 Oxygen Delivery 03/28/25 12:45 03/28/25 13:09 03/28/25 13:22 Temperature Pulse Rate Respiratory Rate Blood Pressure Pulse Oximetry 100 100 99 Oxygen Delivery 03/28/25 13:30 03/28/25 13:31 03/28/25 13:45 Temperature Pulse Rate Respiratory Rate Blood Pressure 125/82 Pulse Oximetry 100 100 100 Oxygen Delivery 03/28/25 14:22 03/28/25 14:30 03/28/25 14:45 Temperature Pulse Rate Respiratory Rate Blood Pressure Pulse Oximetry 100 100 100 Oxygen Delivery 03/28/25 15:00 03/28/25 15:01 03/28/25 15:15 Temperature Pulse Rate Respiratory Rate Blood Pressure 125/85 Pulse Oximetry 100 100 95 Oxygen Delivery 03/28/25 15:31 03/28/25 15:45 03/28/25 16:00 Temperature Pulse Rate Respiratory Rate Blood Pressure Pulse Oximetry 100 100 99 Oxygen Delivery 03/28/25 16:15 03/28/25 16:52 03/28/25 17:22 Temperature 98.2 F Pulse Rate 54 L 69 Respiratory Rate 18 16 Blood Pressure 130/89 132/91 H Pulse Oximetry 100 100 100 Oxygen Delivery 03/28/25 20:00 03/28/25 21:06 03/29/25 04:36 Temperature 97.6 F 97.9 F Pulse Rate 67 63 Respiratory Rate 16 16 Blood Pressure 113/61 119/74 Pulse Oximetry 97 100 Oxygen Delivery Room Air Intake/Output Intake/Output: Intake & Output 03/26/25 03/27/25 03/28/25 03/29/25 23:59 23:59 23:59 23:59 Intake Total 1290 300 Balance 1290 300 Meds/Results Medications: Active Medications Generic Name Dose Route Start Last Admin Trade Name Freq PRN Reason Stop Dose Admin Acetaminophen 650 mg 03/28/25 15:37 03/28/25 19:33 Acetaminophen 325 Mg Tablet PO 650 mg Q4H PRN Administration Mild Pain (1-3) or Fever Hydrocodone Bitart/Acetaminophen 1 tab 03/28/25 15:37 03/28/25 23:32 Hydrocodone/Acetaminophen (*Crx) 5-325 Mg Tablet PO 1 tab Q4H PRN Administration Moderate Pain (4-6) Docusate Sodium 100 mg 03/28/25 15:37 Docusate Sodium 100 Mg Capsule PO BID PRN Constipation Enoxaparin Sodium 80 mg 03/29/25 01:00 03/29/25 05:16 Enoxaparin 80 Mg/0.8 Ml Syringe SUB-Q 80 mg Q12H PATRICIA Administration Loratadine 10 mg 10/17/25 09:00 Loratadine 10 Mg Tablet PO DAILY [facility] Miscellaneous Information 0 each 03/29/25 05:00 Mesalamine 1.2 Gram Tablet,Delayed Release (Dr/Ec)- Please Obtain A Home Supply And Send T XX 04/28/25 04:59 CLARIFY [facility] Morphine Sulfate 2 mg 03/28/25 15:53 03/29/25 05:16 Morphine Sulfate (*Crx) 4 Mg/Ml Inj IV PUSH 2 mg Q4H PRN Administration Pain Rated 7-10 Non-Formulary Medication 3.6 gm 03/29/25 09:00 Mesalamine PO 04/28/25 08:59 DAILY [facility] Radiology Results: ITS Impressions Abdomen/Pelvis CT 03/28/25 08:51 IMPRESSION: 1. Minimal thickening of the appendix although there is no periappendiceal stranding to suggest acute appendicitis. Clinical correlation is required. 2. Focus of abnormal signal in the lower pole right kidney. Findings may reflect a renal infarct or pyelonephritis. Other etiologies are not excluded. Correlate with urinalysis. Contrast-enhanced MRI is suggested to further assess. Labs Labs: Laboratory Results - last 24 hr 03/28/25 03/28/25 03/28/25 07:54 08:52 10:58 WBC 8.1 RBC 5.60 Hgb 15.0 Hct 45.6 MCV 81.4 MCH 26.8 MCHC 32.9 RDW 12.5 Plt Count 206 MPV 10.6 H Immature Gran % (Auto) 0.2 Neut % (Auto) 70.2 Lymph % (Auto) 19.8 [place] % (Auto) 7.7 Eos % (Auto) 1.6 Baso % (Auto) 0.5 Lymph # (Auto) 1.60 [place] # (Auto) 0.6 Eos # (Auto) 0.1 Baso # (Auto) 0.0 Abs Immat Gran (auto) 0.02 Absolute Neuts (auto) 5.7 Absolute Nucleated RBC 0.000 Nucleated RBC % 0.0 Sodium 138 Potassium 4.1 Chloride 101 Carbon Dioxide 30 Anion Gap 7 BUN 18 Creatinine 1.12 Estim Creat Clear Calc 81 Estimated GFR > 60 Glucose 120 H Lactic Acid 0.8 Calcium 9.9 Total Bilirubin 0.6 AST 31 ALT 30 Alkaline Phosphatase 73 Total Protein 7.7 Albumin 4.6 Lipase 44 Urine Color Yellow Urine Appearance Clear Urine pH 7.0 Ur Specific [place] > 1.045 H Urine Protein Trace Urine Glucose (UA) Negative Urine Ketones Negative Ur Blood (Man) Negative Urine Nitrate Negative Urine Bilirubin Negative Urine Urobilinogen 0.2 Leukocyte Esterase Rfl Negative Urine RBC 0-2 Urine WBC 0-5 Ur Squamous Epith Cells None seen Urine Bacteria None seen Urine Casts 0-2 03/29/25 05:30 WBC 8.4 RBC 5.59 Hgb 15.1 Hct 46.1 MCV 82.5 MCH 27.0 MCHC 32.8 RDW 12.5 Plt Count 217 MPV 11.2 H Immature Gran % (Auto) 0.4 Neut % (Auto) 63.4 Lymph % (Auto) 25.2 [place] % (Auto) 8.2 Eos % (Auto) 2.4 Baso % (Auto) 0.4 Lymph # (Auto) 2.11 [place] # (Auto) 0.7 H Eos # (Auto) 0.2 Baso # (Auto) 0.0 Abs Immat Gran (auto) 0.03 Absolute Neuts (auto) 5.3 Absolute Nucleated RBC 0.000 Nucleated RBC % 0.0 Sodium 137 Potassium 4.2 Chloride 102 Carbon Dioxide 29 Anion Gap 6 BUN 16 Creatinine 1.08 Estim Creat Clear Calc 84 Estimated GFR > 60 Glucose 101 Lactic Acid Calcium 9.5 Total Bilirubin AST ALT Alkaline Phosphatase Total Protein Albumin Lipase Urine Color Urine Appearance Urine pH Ur Specific [place] Urine Protein Urine Glucose (UA) Urine Ketones Ur Blood (Man) Urine Nitrate Urine Bilirubin Urine Urobilinogen Leukocyte Esterase Rfl Urine RBC Urine WBC Ur Squamous Epith Cells Urine Bacteria Urine Casts Quality VTE Prophylaxis VTE prophylaxis: pharmacologic ordered
[2025-03-29] MEDS: HYDROcodone/acetaminophen (*CRX) 5-325 MG TABLET 1 TAB PO ×2 (07:27→12:14)
--- NOTE | 2025-03-29 07:52 | PC.NURSE ---
Jessica LION and Drew crowder rn notified of tele order and no tele open on floor to put on patient.
--- NOTE | 2025-03-29 09:39 | PHAR ---
The patient's home med of Mesalamine 1.2gm tab has been verified. Red tab #[id number]
--- NOTE | 2025-03-29 10:20 | P.PNGS_ITS ---
Progress Note: A&P Assessment and Plan (1) Abnormal CT of the abdomen: Code(s): R93.5 - Abnormal findings on diagnostic imaging of other abdominal regions, including retroperitoneum Status: Acute Assessment and Plan: * Not likely appendicitis. No leukocytosis or fever. No tenderness to McBurney's point. CT reviewed with radiologist yesterday who agrees that this is likely not related to appendix. * General surgery team will sign off at this time. Please call with any questions or concerns. (2) Renal infarct: Code(s): N28.0 - Ischemia and infarction of kidney Status: Acute Assessment and Plan: * CT reviewed with the Radiologist yesterday who suspects the findings of lack of enhancement at the lower pole of the right kidney is most likely related to renal infarct. Less likely pyelonephritis, UA normal. Unlikely to be malignancy given the appearance. Etiology unclear. He would likely need further workup with MRA or CTA to determine appropriate management. EKG did not show afib and CT did not show any obvious atherosclerotic plaques. May also need hypercoagulable workup. Renal labs benign today. * MRA scheduled for today. Nephrology and oncology on board. (3) Ulcerative (chronic) proctitis: Qualifiers: Digestive disease complication type: without complication Qualified Code(s): K51.20 - Ulcerative (chronic) proctitis without complications Code(s): K51.20 - Ulcerative (chronic) proctitis without complications Status: Acute Assessment and Plan: * Hx of ulcerative proctitis treated by GI. No recent flare-ups. Currently on mesalamine. Plan I have discussed the patient's case and plan of care with Dr. Castle. Subjective Subjective Date/Time Seen: 03/29/25 10:20 Patient reports: no new complaints and pain is less Interval history: Patient doing well. States that he is not having any pain, but he did just have morphine. No nausea or vomiting, but complains of a headache that he believes could be due to not having anything to eat. Labs are all normal this morning. Exam GI: Inspection: non-distended GI Palp: Yes Soft to palpation and No Tenderness to palpation present (GI) Auscultation: normal bowel sounds Other: Mild right flank tenderness to deep palpation. No tenderness to McBurneys point or anywhere else in the abdomen Objective Data Vital Signs Vital Signs: Vital Signs - 24 hr 03/28/25 10:47 10/16/25 11:00 03/28/25 11:15 Temperature Pulse Rate Respiratory Rate Blood Pressure Pulse Oximetry 100 100 100 Oxygen Delivery 03/28/25 11:37 03/28/25 11:51 03/28/25 12:00 Temperature 98.3 F Pulse Rate Respiratory Rate Blood Pressure Pulse Oximetry 100 100 Oxygen Delivery 03/28/25 12:15 03/28/25 12:38 03/28/25 12:45 Temperature 98.0 F Pulse Rate 60 Respiratory Rate 20 Blood Pressure 124/81 Pulse Oximetry 100 98 100 Oxygen Delivery 03/28/25 13:09 03/28/25 13:22 03/28/25 13:30 Temperature Pulse Rate Respiratory Rate Blood Pressure Pulse Oximetry 100 99 100 Oxygen Delivery 03/28/25 13:31 03/28/25 13:45 03/28/25 14:22 Temperature Pulse Rate Respiratory Rate Blood Pressure 125/82 Pulse Oximetry 100 100 100 Oxygen Delivery 03/28/25 14:30 03/28/25 14:45 03/28/25 15:00 Temperature Pulse Rate Respiratory Rate Blood Pressure Pulse Oximetry 100 100 100 Oxygen Delivery 03/28/25 15:01 03/28/25 15:15 03/28/25 15:31 Temperature Pulse Rate Respiratory Rate Blood Pressure 125/85 Pulse Oximetry 100 95 100 Oxygen Delivery 03/28/25 15:45 03/28/25 16:00 03/28/25 16:15 Temperature Pulse Rate Respiratory Rate Blood Pressure Pulse Oximetry 100 99 100 Oxygen Delivery 03/28/25 16:52 03/28/25 17:22 03/28/25 20:00 Temperature 98.2 F Pulse Rate 54 L 69 Respiratory Rate 18 16 Blood Pressure 130/89 132/91 H Pulse Oximetry 100 100 Oxygen Delivery Room Air 03/28/25 21:06 03/29/25 04:36 03/29/25 08:00 Temperature 97.6 F 97.9 F Pulse Rate 67 63 Respiratory Rate 16 16 Blood Pressure 113/61 119/74 Pulse Oximetry 97 100 100 Oxygen Delivery Room Air Intake/Output Intake/Output: Intake & Output 03/26/25 03/27/25 03/28/25 03/29/25 23:59 23:59 23:59 23:59 Intake Total 1290 300 Balance 1290 300 Meds/Results Medications: Active Medications Generic Name Dose Route Start Last Admin Trade Name Freq PRN Reason Stop Dose Admin Acetaminophen 650 mg 03/28/25 15:37 03/28/25 19:33 Acetaminophen 325 Mg Tablet PO 650 mg Q4H PRN Administration Mild Pain (1-3) or Fever Hydrocodone Bitart/Acetaminophen 1 tab 03/28/25 15:37 03/29/25 07:27 Hydrocodone/Acetaminophen (*Crx) 5-325 Mg Tablet PO 1 tab Q4H PRN Administration Moderate Pain (4-6) Docusate Sodium 100 mg 03/28/25 15:37 Docusate Sodium 100 Mg Capsule PO BID PRN Constipation Enoxaparin Sodium 80 mg 03/29/25 01:00 03/29/25 05:16 Enoxaparin 80 Mg/0.8 Ml Syringe SUB-Q 80 mg Q12H PATRICIA Administration Loratadine 10 mg 03/29/25 09:00 Loratadine 10 Mg Tablet PO DAILY [facility] Morphine Sulfate 2 mg 03/28/25 15:53 03/29/25 09:10 Morphine Sulfate (*Crx) 4 Mg/Ml Inj IV PUSH 2 mg Q4H PRN Administration Pain Rated 7-10 Non-Formulary Medication 0 gm 03/29/25 09:00 Mesalamine PO 04/28/25 08:59 DAILY [facility] Radiology Results: ITS Impressions Abdomen/Pelvis CT 03/28/25 08:51 IMPRESSION: 1. Minimal thickening of the appendix although there is no periappendiceal stranding to suggest acute appendicitis. Clinical correlation is required. 2. Focus of abnormal signal in the lower pole right kidney. Findings may reflect a renal infarct or pyelonephritis. Other etiologies are not excluded. Correlate with urinalysis. Contrast-enhanced MRI is suggested to further assess. Labs Labs: Laboratory Results - last 24 hr 03/28/25 03/29/25 10:58 05:30 WBC 8.4 RBC 5.59 Hgb 15.1 Hct 46.1 MCV 82.5 MCH 27.0 MCHC 32.8 RDW 12.5 Plt Count 217 MPV 11.2 H Immature Gran % (Auto) 0.4 Neut % (Auto) 63.4 Lymph % (Auto) 25.2 [place] % (Auto) 8.2 Eos % (Auto) 2.4 Baso % (Auto) 0.4 Lymph # (Auto) 2.11 [place] # (Auto) 0.7 H Eos # (Auto) 0.2 Baso # (Auto) 0.0 Abs Immat Gran (auto) 0.03 Absolute Neuts (auto) 5.3 Absolute Nucleated RBC 0.000 Nucleated RBC % 0.0 Sodium 137 Potassium 4.2 Chloride 102 Carbon Dioxide 29 Anion Gap 6 BUN 16 Creatinine 1.08 Estim Creat Clear Calc 84 Estimated GFR > 60 Glucose 101 Lactic Acid 0.8 Calcium 9.5
[2025-03-29] MEDS: ONDANSETRON INJ 4 MG/2 ML VIAL IV PUSH (11:34)
[2025-03-29] MEDS: LORATADINE 10 MG TABLET PO (14:10)
[2025-03-29] MEDS: KETOROLAC 10 MG TABLET PO (14:10)
[2025-03-29] MEDS: [UNRECOGNIZED DRUG - OTHER] PO (14:10)
[2025-03-29] MEDS: MESALAMINE 1.2 GM PO (14:10)
--- NOTE | 2025-03-29 16:17 | WPDONCCN ---
Assessment and Plan Assessment and plan (1) Infarction of kidney: Code(s): N28.0 - Ischemia and infarction of kidney Status: Acute Assessment and Plan: Patient is a pleasant 44-year-old male with history of ulcerative colitis came into the hospital with abdominal discomfort sudden in onset without any provoking factors. He has no previous history of thromboembolic events. CT scan showed focal of abnormal signal in the lower pole of the right kidney likely renal infarction or pyelonephritis. MRA abdomen showed small region likely to be related of recent infarction involving the anterior lower pole of the right kidney without any evidence of hemodynamically significant stenosis aneurysm and thrombosis. He has no previous history of thromboembolic events. There was no provoking factors. I will suggest anticoagulation therapy with Eliquis 5 mg twice a day after after the initial starting dose for 1 week. Patient given discharge home and follow-up with me in 3 months. We will perform CT scan in 3 months and then based on the finding will order the hypercoagulable workup as an outpatient. HPI Data of Consult Date/Time: 03/29/25 16:17 Requesting Physician: Derek Cox MD Primary Care Provider: Julia Cuevas APRN Consult Narrative Narrative: Antony Brenner is a 44 year old male with history of ulcerative colitis and migraine came into the hospital with abdominal pain for 3-4 days duration involving the right upper quadrant. He denies any fever chills. Denies any weight loss. Denies any previous history of thromboembolic events. He denies any recent trauma injury and travel. CT scan showed minimal thickening of the appendix and abnormal signal in the lower pole of the right kidney may reflect renal infarction or pyelonephritis. Abdominal MRA showed showed small region of likely relatively recent infarction involving the anterior lower pole of the right kidney. No evidence of hemodynamically significant stenosis, aneurysm and thrombosis of the bilateral renal arteries. Patient was started on Lovenox 80 mg subQ q.12 hours. His abdominal pain symptom has improved. He denies any family history of thromboembolic events. Denies any other new complaints. Review of Systems Review of Systems: Twelve point review of system was reviewed [facility] Past Medical History Medical History Rectal leakage Tenesmus (rectal) Elevated liver enzymes Ulcerative (chronic) proctitis Colitis Lower abdominal pain Diarrhea Migraine Surgical History Surgical History History of colonoscopy Family History Family History (Updated 03/28/25 @ 17:22 by Brett Retana RN) Mother Uterine cancer Grandparent Cancer Father Heart attack Social History Social History Years smoked: 4 Smoking status: Former smoker Tobacco type: cigarettes Smoking end date: 06/13/08 Alcohol intake: current Drinks per week: 0 Substance use: never Substance use type: does not use Lack of Transportation: No Lack of Food: Never True Current Housing: I Have Housing Concerned About Future Housing: No Difficulty Paying Gas/Electric Bills: No Difficulty Paying for Meds: No Currently Unemployed: No Education: Decline to Answer Difficulty w/ Childcare or Family Care: No Living arrangements: alone Gender identity (if verbalized by the patient): Male Sexual Orientation (if Verbalized by the Patient): Straight or Heterosexual Spiritual care concerns: No Meds Home Medications and Allergies Home Medications ?Medication ?Instructions ?Recorded ?Confirmed ?Type loratadine 10 mg tablet (Claritin) 10 mg PO DAILY 03/28/25 03/28/25 History mesalamine 1.2 gram tablet,delayed 3.6 g PO DAILY 03/28/25 03/28/25 History release Allergies Allergy/AdvReac Type Severity Reaction Status Date / Time No Known Allergies Allergy Verified 03/28/25 17:07 Vital Signs Vital Signs - 24 hr 03/28/25 16:52 03/28/25 17:22 03/28/25 20:00 Temperature 36.8 C Pulse Rate 54 L 69 Respiratory Rate 18 16 Blood Pressure 130/89 132/91 H Pulse Oximetry 100 100 Oxygen Delivery Room Air 03/28/25 21:06 03/29/25 04:36 03/29/25 08:00 Temperature 36.4 C 36.6 C Pulse Rate 67 63 Respiratory Rate 16 16 Blood Pressure 113/61 119/74 Pulse Oximetry 97 100 100 Oxygen Delivery Room Air 03/29/25 12:00 03/29/25 14:00 Temperature 35.9 C L Pulse Rate 71 63 Respiratory Rate 16 Blood Pressure 128/78 Pulse Oximetry 98 Oxygen Delivery Exam Narrative: Lungs are clear to auscultation bilaterally Cardiovascular regular rate rhythm no murmurs Abdomen soft nontender nondistended Extremities no edema Results Labs 03/29/25 05:30 03/29/25 05:30 Labs: Short CBC 03/29/25 Range/Units 05:30 WBC 8.4 (4.5-10.0) K/mm3 Hgb 15.1 (14.0-18.0) g/dL Hct 46.1 (42.0-52.0) % Plt Count 217 (150-375) k/mm3 BMP 03/29/25 05:30 Sodium 137 Potassium 4.2 Chloride 102 Carbon Dioxide 29 BUN 16 Creatinine 1.08 Glucose 101 Calcium 9.5
[2025-03-30] VITALS: PULSE 59
[2025-03-30 04:00] VITALS: PULSE 58
[2025-03-30] MEDS: ENOXAPARIN 80 MG/0.8 ML SYRINGE SUB-Q (05:54)
[2025-03-30 06:00] VITALS: BP 127/78; PULSE 78; RESP 18; TEMP 36.2; O2SAT 100
[2025-03-30 08:01] VITALS: PULSE 61
[2025-03-30] MEDS: MESALAMINE 1.2 GM PO (08:17)
[2025-03-30] MEDS: [UNRECOGNIZED DRUG - OTHER] PO (08:17)
[2025-03-30] MEDS: LORATADINE 10 MG TABLET PO (08:17)
[2025-03-30] MEDS: HYDROcodone/acetaminophen (*CRX) 5-325 MG TABLET 1 TAB PO (09:52)
[2025-03-30 12:05] VITALS: PULSE 69
--- NOTE | 2025-03-30 12:42 | PM.DS ---
DS: Admitting Diagnosis Discharge Date 03/30 Admitting Diagnosis abd pain DS: Discharge Diagnosis Discharge Diagnosis (1) Renal infarct: Code(s): N28.0 - Ischemia and infarction of kidney Status: Acute (2) Abnormal CT of the abdomen: Code(s): R93.5 - Abnormal findings on diagnostic imaging of other abdominal regions, including retroperitoneum Status: Acute (3) Ulcerative (chronic) proctitis: Qualifiers: Digestive disease complication type: without complication Qualified Code(s): K51.20 - Ulcerative (chronic) proctitis without complications Code(s): K51.20 - Ulcerative (chronic) proctitis without complications Status: Acute DS: Summary Hospital Course Hospital Course: 44 year old male with past medical history of ulcerative proctosigomiditis presents to the hospital for abdominal pain. General surgery, hem/onc following. Several issues were addressed: # Renal infarct: CT abdomen/pelvis: Focus of abnormal signal in the lower pole right kidney. Findings may reflect a renal infarct or pyelonephritis. Surgery discussed patient with radiology, findings of lack of enhancement at the lower pole of the right kidney is most likely related to renal infarct. Less likely pyelonephritis. Unlikely to be malignancy given the appearance. - UA nonconcerning for infection, renal function WNL - EKG showing no afib, continue tele to assess for any arrhythmias causing clots - Continue therapeutic Lovenox pending heme/onc recommendations - MRA ordered to further assess End seen is a small region of likely relatively recent infarct involving the anterior lower pole of the right kidney. No evident hemodynamically significant stenosis, aneurysm or thrombosis of the bilateral renal arteries with the more peripheral branch renal arteries at the bilateral renal milena. - Consult heme/onc for embolic work up Dr Miller note: Patient is a pleasant 44-year-old male with history of ulcerative colitis came into the hospital with abdominal discomfort sudden in onset without any provoking factors. He has no previous history of thromboembolic events. CT scan showed focal of abnormal signal in the lower pole of the right kidney likely renal infarction or pyelonephritis. MRA abdomen showed small region likely to be related of recent infarction involving the anterior lower pole of the right kidney without any evidence of hemodynamically significant stenosis aneurysm and thrombosis. He has no previous history of thromboembolic events. There was no provoking factors. I will suggest anticoagulation therapy with Eliquis 5 mg twice a day after after the initial starting dose for 1 week. Patient given discharge home and follow-up with me in 3 months. We will perform CT scan in 3 months and then based on the finding will order the hypercoagulable workup as an outpatient. # Abnormal CT of the abdomen: CT abdomen/pelvis showed minimal thickening of the appendix although there is no periappendiceal stranding to suggest acute appendicitis. Surgery was consulted for possible appendicitis After the imaging was reviewed with radiology appendix did not appear to be dilated, but has some mild wall thickening without any surrounding inflammatory stranding to suggest acute appendicitis. This could also be related to his history of ulcerative colitis vs renal infarct No antibiotics or surgical intervention required surgery signed off # Ulcerative (chronic) proctitis: Hx of ulcerative proctitis treated by GI. No recent flare-ups. Currently on mesalamine. Time Spent with Patient Time attestation: Total time spent providing and/or coordinating discharge services: Exam Narrative: General: male in no acute respiratory distress who is nontoxic appearing, sitting up in bed. HEENT: Normocephalic. Atraumatic. Extraocular movement intact. Sclera clear and anicteric. No facial asymmetry. Chest: Lungs are clear to auscultation bilaterally. No wheezes or crackles. CV: Heart was regular rate and rhythm. S1/S2. No murmurs, gallops, or rubs. Abd: Abdomen was soft. Tender to the right side/flank region on deep palpation. Nondistended. Positive bowel sounds. Ext: No clubbing, cyanosis, or edema. DP pulses bilaterally. Neuro: Patient is alert. Speech is clear. Const: General: comfortable Discharge Plan Discharge Attending physician on discharge: Rufino Hill Consulting providers: Kati Basurto; Conor Gallagher Discharging Clinician: Alejandra Cho Patient Disposition: Home Activity: october shower Diet: regular and other - see discharge instructions Discharge Instructions: You were admitted to the hospital with abdominal discomfort sudden in onset without any provoking factors. CT scan showed focal of abnormal signal in the lower pole of the right kidney likely renal infarction or pyelonephritis. MRA abdomen showed small region likely to be related of recent infarction involving the anterior lower pole of the right kidney without any evidence of hemodynamically significant stenosis aneurysm and thrombosis. Hematoloist, DR Gallagher was consulted and dov you. WE started anticoagulation therapy with Eliquis 10 mg orally twice daily for the first 7 days of therapy; after 7 days, 5 mg orally twice daily. Please follow-up with Dr Gallagher in 3 months. We will perform CT scan in 3 months and then based on the finding will order the hypercoagulable workup as an outpatient. Pleasea void NSAIDs like aspirin, motrin or ibuprofen while taking eliquis Patient Instructions: Antibiotic Form Patient Language: Liberian Stand Alone Forms: General Discharge Information Follow-up/Referrals: Conor Gallagher MD [Physician, Hematology] - 2 Weeks Julia Cueavs APRN [Primary Care Provider, Gastroenterology] - 4 Weeks Discharge Medications: New Eliquis 5 mg Tablet 10 mg PO Q12HR Qty: 90 0RF Rx Instructions: please take 10 mg orally twice daily for the first 7 days of therapy; after 7 days, 5 mg orally twice daily Continued loratadine [Claritin] 10 mg tablet 10 mg PO DAILY mesalamine 1.2 gram tablet,delayed release (DR/EC) 3.6 g PO DAILY Date of admission: 03/28/25 15:03 Primary Care Provider: Julia Cuevas Admitting Provider: Derek Cox Attending physician on admission: Derek Cox Condition: Stable Quality VTE Prophylaxis VTE prophylaxis: pharmacologic ordered Hospitalist MIPS Heart Failure (Exclusion) Patient has history of Heart Transplant or Left Ventricular Assistive Device?: No IF YES, STOP HERE Heart Failure (Qualifier) Patient has current or prior documentation of LVEF less than or equal to 40%, or mod/servere depressed LVSF?: No IF NO, STOP HERE
[2025-03-30] MEDS: KETOROLAC 10 MG TABLET PO (13:05)
[2025-03-30 14:00] VITALS: BP 131/81; PULSE 62; RESP 18; TEMP 36.6; O2SAT 98
== END 2025-03-30 14:00 | disposition home or self-care (01) ==
LOC: ANHED 15:03 → ANH3MEDSUR 03-29 06:53
PROVIDERS: Admitting Provider Internal Medicine; Emergency Provider Preventive Medicine Aerospace Medicine; PCP Nurse Practitioner; Visit Provider Internal Medicine
DX: N28.0 Ischemia and infarction of kidney (principal); K51.20 Ulcerative (chronic) proctitis without complications; R93.5 Abnormal findings on diagnostic imaging of other abdominal regions, including retroperitoneum; Z87.891 Personal history of nicotine dependence
CPT/HCPCS: 36415; 74177; 74185; 80048; 80053; 81001; 83605; 83690; 85025; 93005; 96365; 96372; 96375; 99285; A9270; A9577; C8902; G0378; J1650; J1885; J2270; J2405; J2543; J7030; Q9967